=== PATIENT | female | born 1960 | race Caucasian/White ===

== ENCOUNTER 2020-02-20 09:08 | Emergency (ER) | payer BC, SELFPAY ==
[2020-02-20 09:19] VITALS: BP 156/83; PULSE 102; RESP 16; TEMP 37.4; O2SAT 99
--- NOTE | 2020-02-20 09:21 | ED.GENADULT ---
HPI - General Adult General Chief complaint: Skin/Abscess/Foreign Body Stated complaint: itchy rash Time Seen by Provider: 02/20/20 09:21 Source: patient Mode of arrival: ambulatory Limitations: no limitations History of Present Illness HPI narrative: 59-year-old female patient presents to the [facility] with complaints of a left ankle wound for the past 10 days and a rash for the past 5 to 6 days. Patient states that she had surgery on her left ankle back in August because she had broken her ankle and they had to put some pins into the left ankle. Patient states it was completely healed up and about 10 days ago she noticed that the skin was getting irritated and it had opened up and was losing. Patient states she also noticed a little bit of a rash around the ankle as well. Patient states that she was putting some Neosporin on it and did follow-up with the surgeon that had bit her ankle surgery and states that they did not think that the pain was or the hardware and there was causing her skin issue and just recommended putting continuing to put Neosporin on the area. Patient states she was doing that it did appear to get better however couple days ago it opened up again and started having some bruising of yellow discharge. Patient denies any pain to the area. Patient states that she has also noticed a rash of the ankle that has now spread throughout the entire body. Patient states she has tried taking Benadryl for the rash but states that has not helped with the itching. Patient states did not appear to be hive-like rash but states that now the visible rash is gone but continues to have itching. Denies any chest pain, shortness of breath. Denies any swelling to the lips tongue or face. Patient denies coming into contact with anything that she is allergic to and denies any new soaps lotions or detergents. Related Data Allergies Allergy/AdvReac Type Severity Reaction Status Date / Time Ascwrox-Kkn-Jtx Reductase Allergy Unknown Unknown Verified 02/20/20 09:47 Inhibitor strawberry Allergy Unknown Unknown Verified 02/20/20 09:47 Review of Systems Review of Systems: Narrative: CONSTITUTIONAL: Denies fever, chills, or sweats. EYES: Denies visual changes, redness, or discharge. ENT: Denies rhinorrhea, congestion, sore throat, or otalgia. CARDIOVASCULAR: Denies chest pain, palpitations, or edema. RESPIRATORY: Denies cough or dyspnea. GASTROINTESTINAL: Denies abdominal pain, nausea, vomiting, or diarrhea. GENITOURINARY: Denies dysuria or hematuria. SKIN: Positive rash with itching to left ankle, bilateral lower extremities, bilateral upper extremities, chest and face x4 5 days. Positive wound to left lateral ankle x10 days MUSCULOSKELETAL: Denies back pain, joint pain, or myalgia. NEUROLOGIC: Denies headache, numbness, or weakness. PSYCHIATRIC: Denies anxiety or depression. [facility] Past Medical History Medical History (Updated 02/20/20 @ 09:51 by ANABEL Shah) Hypertension Surgical History Surgical History (Updated 02/20/20 @ 09:44 by ANABEL Shah) History of appendectomy Hx of cholecystectomy Family History Family History Father Diabetes mellitus Family history of cardiovascular disease Mother Diabetes mellitus Hypertension Social History Social History Smoking status: Light tobacco smoker Second hand tobacco smoke exposure: No Alcohol intake: current Comments At the time of my signature I agree with nursing past medical history, surgical, social, and family history. There is no relevant family history pertinent to the presenting complaint. Exam Narrative: Exam Narrative: GENERAL: Well-appearing, well-nourished, and in no acute distress. HEAD: Normocephalic, atraumatic. EYES: PERRLA and EOMI. ENT: Nares clear, no rhinorrhea or epistaxis. Mucous membranes moist. NECK: Supple. No lymp
== END 2020-02-20 09:55 | disposition home or self-care (01) ==
PROVIDERS: Emergency Provider Nurse Practitioner Family; PCP Family Medicine
DX: L25.9 Unspecified contact dermatitis, unspecified cause (principal); F17.200 Nicotine dependence, unspecified, uncomplicated; I10 Essential (primary) hypertension
CPT/HCPCS: 99213; G0463

== ENCOUNTER 2020-07-27 18:32 | Emergency (ER) | payer BC, SELFPAY ==
--- NOTE | ~2020-07-27 | XR_ITS ---
EXAMINATION: XR chest 1V portable 07/27/2020 19:31 INDICATION: Shortness of breath. Hypertension. PROCEDURE: AP portable chest COMPARISON: 02/15/2009 FINDINGS: The lungs are clear. The cardiomediastinal silhouette is within normal limits. There are no pleural effusions. There is no pneumothorax suspected. There is dextroscoliosis of the thoracic spine. IMPRESSION: 1: NO ACUTE CARDIOPULMONARY DISEASE. Reviewed, dictated and finalized at location A. MATIC MACHINE ATTENDANT
--- NOTE | ~2020-07-27 | CT_ITS ---
EXAMINATION: CTA chest PE protocol DATE: 07/27/2020 20:21 AUTOMATIC PILOT MECHANIC INDICATION: Chest pain TECHNIQUE: Computed tomographic angiography (CTA) of the chest was performed with 100 mL Omnipaque-35 0 intravenous contrast. The dose-length product was 410.68 mGy-cm. Maximum intensity projection 3D-re constructions of the aorta and other arteries were constructed by the technologist on a separate work station. Automated exposure control and iterative reconstruction technique were employed. COMPARISON: None. FINDINGS: Study is technically adequate without evidence for pulmonary embolism. No evidence for aort ic aneurysm or dissection. No significant pleural or pericardial effusion. There is a large liver cys t measuring approximately 7 cm in the region of the presley hepatis. There are cholecystectomy clips. N o thoracic lymphadenopathy.No focal airspace disease. No pneumothorax. No suspicious pulmonary nodule s or masses. No endobronchial lesions. There is dependent atelectasis. There is dextroscoliosis of th e thoracic spine. Mild thoracic spondylosis. IMPRESSION: 1. No acute cardiopulmonary disease. No evidence for pulmonary embolism. Reviewed, dictated and finalized at location A. MATIC PILOT MECHANIC
--- NOTE | ~2020-07-27 | CT_ITS ---
EXAMINATION: CT BRAIN W/O DATE: 07/27/2020 19:01 INDICATION: Right forearm numbness. TECHNIQUE: Computed tomography (CT) of the head was performed without intravenous contrast. The dose- length product was 605.33 mGy-cm. The mA was adjusted according to patient size. Iterative reconstruc tion technique was employed. COMPARISON: No prior studies for comparison. FINDINGS: Normal brain parenchymal volume for age. Normal del castillo-white differentiation. No acute intrac ranial hemorrhage, infarction, mass or mass effect. No ventriculomegaly or midline shift. Midline sagittal images demonstrate a normal corpus callosum, c raniovertebral junction and sella turcica. Basilar cisterns are patent. Paranasal sinuses and mastoids are pneumatized. No depressed skull fractures. IMPRESSION: 1. No acute intracranial abnormality. Reviewed, dictated and finalized at location A. FOLIO ASSISTANT
--- NOTE | ~2020-07-27 | CT_ITS ---
EXAMINATION: CTA brain carotid DATE: 07/27/2020 21:11 RED CROSS WORKER INDICATION: Right-sided neck pain. Carotid palpitations. TECHNIQUE: Computed tomographic angiography (CTA) of the head was performed without and with 100 mL O mnipaque-350 intravenous contrast. CTA of the neck was performed with intravenous contrast. The dose- length product was 1020.45 mGy-cm. Maximum intensity projection and volume rendered 3D-reconstruction s were created by the technologist on a separate workstation. COMPARISON: CT brain dated 07/27/2020. FINDINGS: HEAD CTA: There is mild stenosis of the bilateral cavernous internal carotid arteries. The anterior, middle and posterior cerebral arteries are patent with normal caliber. There is anterior dominant cir culation with origin of the posterior cerebral arteries. Small caliber vertebral and basilar ar speedy likely developmental without superimposed stenosis. No aneurysm. There is intracranial atheroscl erosis. NECK CTA: There is moderate stenosis at the origin of the left internal carotid artery due to atheros clerotic plaque. There is mild stenosis at the origin of the right internal carotid artery due to ath erosclerotic plaque. There is a 1 cm left thyroid nodule, likely benign. There is conventional aortic arch with patent origin of the great vessels. Common carotid arteries are patent with normal caliber . Bilateral vertebral arteries are normal in caliber. No evidence for dissection. There is less than 50%% stenosis of the proximal right internal carotid artery relative to normal dis alfred artery lumen diameter (NASCET criteria). There is 60% stenosis of the proximal left internal boateng tid artery relative to normal distal artery lumen diameter. IMPRESSION: 1. Less than 50% stenosis of the proximal right internal carotid artery relative to normal distal art guy lumen diameter (NASCET criteria). 2. 60% stenosis of the proximal left internal carotid artery relative to normal distal artery lumen d iameter. 3: Patent intracranial circulation without evidence for aneurysm. Reviewed, dictated and finalized at location A. CROSS WORKER IMPRESSION: 1. Less than 50% stenosis of the proximal right internal carotid artery relativ e to normal distal artery lumen diameter (NASCET criteria). 2. 60% stenosis of the proximal left internal carotid artery relative to normal distal artery lumen diameter. 3: Patent intracranial circulation without evidence for aneurysm.
--- NOTE | 2020-07-27 18:52 | ECG_ITS ---
Measurements Intervals [place] Rate: 87 P: 50 DE: 121 QRS: 35 QRSD: 94 T: 37 QT: 355 QTc: 428 Interpretive Statements SINUS RHYTHM CONSIDER INFERIOR INFARCT, AGE INDETERMINATE BASELINE ARTIFACT- I, II, III, AVR, AVL, AVF, V1-V3 ABNORMAL ECG Electronically Signed On 07-28-2020 8:38:47 ELEVATOR CONSTRUCTOR HYDRAULIC by Jared Rea D.O.
[2020-07-27 19:03] VITALS: BP 185/88; PULSE 81; RESP 20; TEMP 36.8; O2SAT 100
[2020-07-27 19:22] LABS: Basophils Percent Auto 0.3 % (0.2-1.2); Eosinophils Percent Auto 0.6 % (0-4.4); Hematocrit 39.2 % (37.0-47.0); Hemoglobin 13.3 g/dL (12.0-15.0); Immature Granulocyte Absolute 0.02 K/mm3 (0.00-0.031); Immature Granulocyte Percent A 0.3 % (0-0.5); Lymphocytes Absolute Auto 2.89 K/mm3 (0.9-3.2); Mean Corpuscular HGB Conc 33.9 g/dl (32-36); Mean Corpuscular Hemoglobin 33.5 pg (26-34); Mean Corpuscular Volume 98.7 fl (80-100); Mean Platelet Volume 9.8 fl (7.4-10.4); Monocytes Absolute Auto 0.4 K/mm3 (0.1-0.6); Neutrophils Absolute Auto 3.5 K/mm3 (1.3-6.7); Neutrophils Percent Auto 50.8 % (45.5-73.1); Platelet Count Result 228 k/mm3 (150-375); Red Blood Count 3.97 M/mm3 (4.2-5.4); Red Cell Distribution Width 12.1 % (11.5-14.5); White Blood Count 6.9 K/mm3 (4.5-10.0)
[2020-07-27 19:32] LABS: INR 0.9; Prothrombin Time 12.8 Seconds (11.1-14.7)
[2020-07-27 19:34] LABS: Partial Thromboplastin Time 24.8 SECONDS (22.3-36.8)
[2020-07-27 19:40] LABS: Anion Gap 6 mmol/L (8-16); Blood Urea Nitrogen 13 mg/dL (7-17); Calcium 9.6 mg/dL (8.4-10.2); Carbon Dioxide 29 mmol/L (22-30); Chloride 98 mmol/L (98-107); Estimated CRCL calculation 138 ml/min; Estimated Glomerular Filt Rate > 60; Glucose 114 mg/dL (65-105); Potassium 4.1 mmol/L (3.4-5.0); Sodium 133 mmol/L (137-145)
[2020-07-27 19:53] LABS: Troponin I < 0.012 ng/mL (0.000-0.034)
--- NOTE | 2020-07-27 19:59 | ED.GENADULT ---
HPI - General Adult General Chief complaint: Arrhythmia/Palpitations Stated complaint: paliptations and neck pain Time Seen by Provider: 07/27/20 19:12 History of Present Illness HPI narrative: Patient is a 59-year-old female who presents to the emergency department with chief complaint of right-sided neck pain and chest discomfort. Patient reports that she was at work approximately 4 PM started having pain in the right side of her neck that then radiated down her right arm. Patient states that her arm felt a little weak at the time but did not have any other weakness that developed. Patient states she had some tightness in her chest and also reported that she felt somewhat short of breath when this occurred patient denies headache denies focal neurological deficit. The patient states that her upper extremity has improved and feels almost back to normal at this time but states she still feels a little bit of discomfort in the right side of her neck. Patient reports she has history of carotid stenosis that was treated with just antiplatelet therapy. Related Data Home Medications Medication Instructions Recorded Confirmed B-complex with vitamin C 1 tablet PO DAILY 07/13/20 07/13/20 calcium carbonate 600 mg calcium 600 mg PO DAILY 07/13/20 07/13/20 (1,500 mg) tablet magnesium oxide 500 mg tablet 500 mg PO DAILY 07/13/20 07/13/20 multivitamin 1 tablet PO DAILY 07/13/20 07/13/20 Allergies Allergy/AdvReac Type Severity Reaction Status Date / Time Reegntb-Gpj-Ksi Reductase Allergy Unknown Unknown Verified 07/13/20 07:58 Inhibitor strawberry Allergy Unknown Unknown Verified 07/13/20 07:58 Review of Systems Review of Systems: Narrative: A 10 system review of systems was completed on the patient and is negative except for what is stated in the HPI. Nursing and ancillary documentation was reviewed. [facility] Past Medical History Medical History Hypertension Surgical History Surgical History History of appendectomy Hx of cholecystectomy Family History Family History Father Diabetes mellitus Family history of cardiovascular disease Mother Diabetes mellitus Hypertension Social History Social History Social History: Years smoked: 15 Smoking status: Former smoker Tobacco type: cigarettes Second hand tobacco smoke exposure: No Smoking end date: 03/18/16 Alcohol intake: current Drinks per week: 3 Substance use: never Substance use type: does not use Gender identity (if verbalized by the patient): Female Exam Narrative: Exam Narrative: GENERAL: Well-appearing, well-nourished, and in no acute distress. HEAD: Normocephalic, atraumatic. EYES: PERRLA and EOMI. ENT: Nares clear, no rhinorrhea or epistaxis. Mucous membranes moist. NECK: Supple. CHEST: Clear to auscultation. No respiratory distress. HEART: Regular rate and rhythm. No murmur heard. Normal peripheral pulses. ABDOMEN: Soft, nontender, nondistended, normal active bowel sounds. EXTREMITIES: Normal range of motion. No edema. SKIN: Warm, dry, no rash. NEURO: No focal deficits. Alert and oriented x3. PSYCH: Normal mood and affect. Course Course Emergency Course: CTA of the neck showed severe stenosis of the left internal carotid and mild stenosis of the right ICA. There is no evidence of dissection. CTA of the chest showed no evidence of dissection and no evidence of pulmonary embolism. Discussion with the patient patient was offered admission for further evaluation. Potential MRI patient at this time to proceed with outpatient treatment and outpatient follow-up. Vital Signs Vital signs: Vital Signs Temperature 36.8 C 07/27/20 19:03 Pulse Rate 81 07/27/20 19:03 Res
[2020-07-27 21:04] LABS: Troponin I < 0.012 ng/mL (0.000-0.034)
[2020-07-27 21:14] VITALS: BP 141/86; PULSE 75; RESP 15; TEMP 36.4; O2SAT 98
== END 2020-07-27 21:15 | disposition home or self-care (01) ==
PROVIDERS: Emergency Medicine; Emergency Provider Emergency Medicine; PCP Family Medicine
DX: M54.2 Cervicalgia (principal); I10 Essential (primary) hypertension; Z87.891 Personal history of nicotine dependence; R94.31 Abnormal electrocardiogram [ECG] [EKG]; I65.23 Occlusion and stenosis of bilateral carotid arteries
CPT/HCPCS: 36415; 70450; 70496; 70498; 71045; 71275; 80048; 81025; 82948; 84484; 85025; 85610; 85730; 93005; 99284; Q9967

== ENCOUNTER 2020-08-14 15:15 | Outpatient (CLI) | payer BC, SELFPAY ==
--- NOTE | ~2020-08-14 | DEXA_ITS ---
Bone Density Report Name: Chante Yung Age: 59 Sex: Female Ethnicity: White Date of : 1960 Indication: postmenopausal; height loss; prior fracture; Referring Provider: DWAYNE MCLEOD Study: Bone densitometry was performed. Exam Date: August 14, 2020 Accession number: [id number] Bone Density: Region BMD T-score Z-score Classification AP Spine (L1, L2, L3) 0.932 -0.8 0.6 Normal Femoral Neck (Left) 0.797 -0.5 0.8 Normal Total Hip (Left) 0.901 -0.3 0.6 Normal Total Hip Bilateral Avg 0.939 0.0 1.0 Normal Femoral Neck (Right) 0.816 -0.3 1.0 Normal Total Hip (Right) 0.976 0.3 1.3 Normal World Health Organization criteria for BMD impression classify patients as: Normal (T-score at or above -1.0), Osteopenia (T-score between -1.0 and -2.5), or Osteoporosis (T-score at or below -2.5). 10-year Fracture Risk: FRAX not reported because: All T-scores for Spine Total, Hip Total, Femoral Neck at or above -1.0 Previous Exams: Region Exam Age BMD T-score BMD Change BMD Change Date g/cm2 vs Baseline vs Previous AP Spine(L1, L2, L3) 08/14/2020 59 0.932 -0.8 -0.157(-14.4%) -0.157(-14.4%) 03/23/2010 49 1.089 0.6 Total Hip(Left) 08/14/2020 59 0.901 -0.3 -0.169(-15.8%) -0.169(-15.8%) 03/23/2010 49 1.070 1.0 Total Hip(Right) 08/14/2020 59 0.976 0.3 -0.119(-10.9%) -0.119(-10.9%) 03/23/2010 49 1.096 1.3 *Denotes significance at 95% confidence level, LSC for AP Spine = 0.022 g/cm2, LSC for Total Hip = 0.027 g/cm2 Clinical Information Provided by Patient: Has had a low trauma fracture Has used the following medications: Vitamin D, Calcium Patient maximum height was 68 Menopause Age: 44 Onset of menses at age 11 Number of children 0 Impression: The patient has normal bone mass. The patient has risk factors, including: previous fracture. No significant bone loss was observed. Discussion: BONE DENSITY IS ABOVE THE MINIMUM DESIRABLE LEVEL AT ALL SKELETAL SITES TESTED. This patient?s bone mineral density is above the minimum desirable level (T-score -1.0 or better) at all sites measured. The patient should follow a healthful lifestyle (good nutrition with adequate calcium and vitamin D, and appropriate weight-bearing exercise). Follow-Up: Consider repeating this study in 5 years or sooner if there is some new clinical indication. Reported by: JOHN on 08/14/2020 3:52:00 PM. Revie
--- NOTE | ~2020-08-14 | MM_ITS ---
EXAMINATION: MM screening [facility] BI w rossy HISTORY: Screening mammogram TECHNIQUE: Craniocaudal and mediolateral oblique 3-D tomosynthesis images were obtained and synthetic 2-D images were generated. CAD analysis was submitted and interpreted. COMPARISON: 03/08/2015, 01/15/2013, 04/24/2010 BREAST PARENCHYMAL COMPOSITION: The breasts are extremely dense, which lowers the sensitivity of mamm ography. FINDINGS: RIGHT BREAST: There is no evidence of suspicious mass, calcification, or architectural distortion to suggest malignancy. There has been no significant interval change. LEFT BREAST: Asymmetry is present in the middle third of the slightly inner breast 3.7 cm from the ni pple on the craniocaudal view. IMPRESSION: 1. Left breast asymmetry. 2. Additional mammographic views and possible breast ultrasound are recommended. BI-RADS Category 0: Incomplete: Needs additional imaging evaluation. Reviewed, dictated and finalized at location A. IMPRESSION: 1. Left breast asymmetry. 2. Additional mammographic views and possible breast ultrasound are recommended . BI-RADS Category 0: Incomplete: Needs additional imaging evaluation.
== END 2020-08-14 15:16 | disposition home or self-care (01) ==
LOC: ANHIMG 15:17
PROVIDERS: PCP Family Medicine; Visit Provider Family Medicine
DX: Z12.31 Encounter for screening mammogram for malignant neoplasm of breast (principal); Z78.0 Asymptomatic menopausal state; R92.8 Other abnormal and inconclusive findings on diagnostic imaging of breast
CPT/HCPCS: 77063; 77067; 77080

== ENCOUNTER 2020-09-05 12:58 | Outpatient (CLI) | payer BC, SELFPAY ==
--- NOTE | ~2020-09-05 | MMUS_ITS ---
EXAMINATION: MM diagnostic mammo unilat LT, US breast LT limited HISTORY: Left breast asymmetry on screening mammogram TECHNIQUE: Additional 3-D tomosynthesis images of the left breast were performed and synthetic 2-D im ages were generated. CAD analysis was submitted and interpreted. High resolution limited left breast ultrasound was performed. COMPARISON: 08/14/2020, 03/08/2015, 01/15/2013 FINDINGS: MAMMOGRAPHIC FINDINGS: There is a return to baseline fibroglandular appearance with spot compression of the left breast in t he area questioned on screening mammogram. No suspicious mass or architectural distortion are identif ied. Scattered benign-appearing calcifications are present. ULTRASOUND: There is a 4 mm cyst at the 10:00 location 2 cm from the nipple. IMPRESSION: 1. No mammographic or sonographic evidence of malignancy. 2. Recommend routine screening mammography in one year. BI-RADS Category 2: Benign finding(s). Reviewed, dictated and finalized at location A. IMPRESSION: 1. No mammographic or sonographic evidence of malignancy. 2. Recommend routine screening mammography in one year. BI-RADS Category 2: Benign finding(s).
== END 2020-09-05 12:59 | disposition home or self-care (01) ==
PROVIDERS: PCP Family Medicine; Visit Provider Family Medicine
DX: R92.8 Other abnormal and inconclusive findings on diagnostic imaging of breast (principal)
CPT/HCPCS: 76642; 77065

== ENCOUNTER 2021-10-25 09:08 | Outpatient (CLI) | payer BC, SELFPAY ==
[2021-10-25 09:29] LABS: Basophils Percent Auto 0.6 % (0.2-1.2); Eosinophils Absolute Auto 0.1 K/mm3 (0-0.3); Hemoglobin 13.1 g/dL (12.0-15.0); Immature Granulocyte Absolute 0.01 K/mm3 (0.00-0.031); Immature Granulocyte Percent A 0.2 % (0-0.5); Lymphocytes Absolute Auto 1.44 K/mm3 (0.9-3.2); Lymphocytes Percent Auto 29.3 % (18.3-44.2); Mean Corpuscular HGB Conc 34.5 g/dl (32-36); Mean Corpuscular Hemoglobin 34.8 pg (26-34); Mean Corpuscular Volume 101.1 fl (80-100); Mean Platelet Volume 9.2 fl (7.4-10.4); Monocytes Absolute Auto 0.3 K/mm3 (0.1-0.6); Monocytes Percent Auto 6.9 % (2.6-8.5); Platelet Count Result 231 k/mm3 (150-375); Red Blood Count 3.76 M/mm3 (4.2-5.4); Red Cell Distribution Width 12.2 % (11.5-14.5); White Blood Count 4.9 K/mm3 (4.5-10.0)
[2021-10-25 09:41] LABS: Alanine Aminotransferase 29 U/L (6-35); Albumin Level 4.6 g/dL (3.5-5.1); Alkaline Phosphatase 55 U/L (38-126); Anion Gap 4 mmol/L (8-16); Aspartate Amino Transferase 34 U/L (14-36); Bilirubin,Total 0.3 mg/dL (0.2-1.3); Blood Urea Nitrogen 10 mg/dL (7-17); Calcium 8.6 mg/dL (8.4-10.2); Carbon Dioxide 29 mmol/L (22-30); Chloride 101 mmol/L (98-107); Cholesterol 186 mg/dL (0-200); Estimated Glomerular Filt Rate > 60; Glucose 122 mg/dL (65-110); HDL Direct 74 mg/dL; Potassium 4.1 mmol/L (3.4-5.0); Sodium 134 mmol/L (137-145); Triglycerides 90 mg/dL (<150)
[2021-10-25 09:51] LABS: LDL Cholesterol Direct 74 mg/dL
[2021-10-25 10:11] LABS: Thyroid Stimulating Hormone 0.305 uIU/mL (0.465-4.680)
== END 2021-10-25 09:09 | disposition home or self-care (01) ==
LOC: ANHLAB 09:10
PROVIDERS: PCP Family Medicine; Visit Provider Family Medicine
DX: E78.2 Mixed hyperlipidemia (principal); I10 Essential (primary) hypertension; E11.9 Type 2 diabetes mellitus without complications; E03.9 Hypothyroidism, unspecified
CPT/HCPCS: 36415; 80053; 80061; 83036; 84443; 85025

== ENCOUNTER 2021-12-11 09:13 | Outpatient (CLI) | payer BC, SELFPAY ==
--- NOTE | ~2021-12-11 | MM_ITS ---
EXAMINATION: MM screening [facility] BI w rossy HISTORY: Screening mammogram TECHNIQUE: Craniocaudal and mediolateral oblique 3-D tomosynthesis images were obtained and synthetic 2-D images were generated. Bilateral rotated lateral CC views. CAD analysis was submitted and interp reted. COMPARISON: 09/05/2020 diagnostic left mammogram and limited left breast ultrasound examination 08/14/2020, 03/08/2019.. BREAST PARENCHYMAL COMPOSITION: The breasts are extremely dense, which lowers the sensitivity of mamm ography. FINDINGS: Right breast: Multiple benign calcifications are noted. There is no evidence of suspicious mass, calcification, or architectural distortion to suggest malignancy in either breast. There has be en no suspicious interval change. Left breast: New mammographic asymmetry is noted in the posterior upper outer left breast and along t he anterior upper fibroglandular margin on MLO view. Diagnostic left mammogram and left breast ultras ound examination are recommended. IMPRESSION: 1. New mammographic asymmetry on the left 2. Diagnostic left mammogram and left breast ultrasound examination are recommended. BI-RADS Category 0: Incomplete: Needs additional imaging evaluation. Reviewed, dictated and finalized at location A. IMPRESSION: 1. New mammographic asymmetry on the left 2. Diagnostic left mammogram and left breast ultrasound examination are recomme nded. BI-RADS Category 0: Incomplete: Needs additional imaging evaluation.
== END 2021-12-11 09:14 | disposition home or self-care (01) ==
PROVIDERS: PCP Family Medicine; Visit Provider Family Medicine
DX: Z12.31 Encounter for screening mammogram for malignant neoplasm of breast (principal); R92.8 Other abnormal and inconclusive findings on diagnostic imaging of breast
CPT/HCPCS: 77063; 77067

== ENCOUNTER 2024-01-05 13:05 | Outpatient (CLI) | payer OTHER, SELFPAY ==
--- NOTE | ~2024-01-05 | MMUS_ITS ---
EXAMINATION: MM diagnostic [facility] BI w rossy, US breast BI complete HISTORY: Follow-up breast asymmetries. TECHNIQUE: Additional 3-D tomosynthesis images of the breasts were performed and synthetic 2-D images were generated. CAD analysis was submitted and interpreted. High resolution bilateral complete breas t ultrasound was performed. COMPARISON: Comparison to multiple prior studies sequentially, with oldest reviewed study dated 02/17. BREAST PARENCHYMAL COMPOSITION: Dense: The breasts are extremely dense, which lowers the sensitivity of mammography. FINDINGS: MAMMOGRAPHIC FINDINGS: There are stable bilateral breast asymmetries. There are scattered benign-appearing breast calcificat ions. No discrete architectural distortion. ULTRASOUND: Complete US of all 4 quadrants of the breast/s and retroareolar region was reviewed. Right breast: At 4:30, 4 cm from the nipple there is a 3 mm cyst. No suspicious masses in the right b reast to suggest malignancy. Left breast: At 2:00, 7 cm from the nipple there is an antiparallel irregular shaped hypoechoic mass measuring 1.5 x 1.3 x 1.2 cm with marginal vascularity and mixed posterior attenuation. At 3:00, 5 cm from the nipple there is an oval slightly irregular shaped hypoechoic 7 mm mass with internal vascul arity. IMPRESSION: 1. Abnormal left breast masses located at 2:00, 7 cm from the nipple and 3:00, 5 cm from the nipple. 2. Ultrasound-guided biopsies recommended. BI-RADS category 4, suspicious findings. Reviewed, dictated and finalized at location B. IMPRESSION: 1. Abnormal left breast masses located at 2:00, 7 cm from the nipple and 3:00, 5 cm from the nipple. 2. Ultrasound-guided biopsies recommended. BI-RADS category 4, suspicious findings.
== END 2024-01-05 13:06 | disposition home or self-care (01) ==
PROVIDERS: PCP Family Medicine; Visit Provider Physician Assistant
DX: N63.0 Unspecified lump in unspecified breast (principal); R92.8 Other abnormal and inconclusive findings on diagnostic imaging of breast
CPT/HCPCS: 76641; 77062; 77066; G0279

== ENCOUNTER 2024-01-27 14:33 | Outpatient (CLI) | payer OTHER, SELFPAY ==
--- NOTE | ~2024-01-27 | MM_ITS ---
MM post biopsy diagnostic LT 01/27/2024 16:21 INDICATION: Status post recent ultrasound-guided left breast biopsy. TECHNIQUE: Digital diagnostic left mammogram. COMPARISON: 01/05/2024 BREAST PARENCHYMAL COMPOSITION: The breasts are extremely dense, which lowers the sensitivity of mamm ography. FINDINGS: Postbiopsy changes are noted in the upper, outer left breast, consistent with recent ultras ound guided biopsy. Interval placement of tissue marker in the upper, outer quadrant of the left maximus st. Please refer to Dr. Rosmery Juarez's procedural report for details.] IMPRESSION: 1: Status post recent upper, outer left breast biopsy with post procedure mammogram for marker placem ent. Reviewed, dictated and finalized at location . IMPRESSION: 1: Status post recent upper, outer left breast biopsy with post procedure mammo gram for marker placement.
--- NOTE | 2024-01-27 14:50 | WPDBIOPSY ---
Biopsy Procedure Date of Procedure 01/27/24 Indication Left breast mass at 2 o'clock 7cm from the nipple Impression Same as above Procedure Performed Procedure Performed: US Breast Biopsy with Imaging Surgeon Rosmery Jo MD Anesthesia Anesthesia: Local Description of Procedure Description of Procedure: Risk of the procedure were discussed with the patient which included but not limited to risk of bleeding, infection, possible need for repeat biopsy or additional procedures in the future, bruising, hematoma,etc. Benefits and alternatives to procedure were discussed as well. Consent was obtained and a time out was performed. The left breast mass was identified using the US at 2 o'clock position 7 cm from the nipple, and lidocaine with epinephrine was used to anesthetize the skin and tissue surrounding the mass under US guidance. A 10g vacuum assisted device was used to obtain 4 core biopsy specimens under US guidance. An Inrad tissue marker clip was then placed at the biopsy site under US guidance. Pressure was held over the area for 10 minutes with excellent hemostasis. Core needle specimens were sent to pathology in formalin. Patient tolerated the procedure well with no immediate complications. A post-procedure left mammogram was obtained to confirm the tissue marker clip placement.
== END 2024-01-27 14:34 | disposition home or self-care (01) ==
LOC: ANHIMG 14:34
PROVIDERS: PCP Family Medicine; Visit Provider Surgery
DX: C50.412 Malignant neoplasm of upper-outer quadrant of left female breast (principal)
CPT/HCPCS: 19083; 77065; 88305; 88342; 88360; A4648

== ENCOUNTER 2024-02-12 08:27 | Outpatient (CLI) | payer OTHER, SELFPAY ==
--- NOTE | 2024-02-12 08:32 | ECG_ITS ---
Test Date: 2024-02-12 08:48:54 Measurements Intervals [place] Rate: 73 P: 61 MA: 131 QRS: 50 QRSD: 103 T: 48 QT: 373 QTc: 413 Interpretive Statements SINUS RHYTHM MINIMAL Q WAVES- INFERIOR LEADS BASELINE ARTIFACT- I, II, III, AVR, AVL, AVF, V1-V6 BORDERLINE ECG No previous ECG available for comparison Electronically Signed On 02-12-2024 09:04:30 CDT by Jared Rea D.O.
[2024-02-12 09:16] LABS: Anion Gap 7 mmol/L (4-12); Blood Urea Nitrogen 17 mg/dL (7-17); Calcium 9.7 mg/dL (8.4-10.2); Carbon Dioxide 29 mmol/L (22-30); Chloride 99 mmol/L (98-107); Estimated Glomerular Filt Rate > 60; Glucose 105 mg/dL (65-110); Potassium 4.2 mmol/L (3.4-5.0); Sodium 135 mmol/L (137-145)
== END 2024-02-12 08:28 | disposition home or self-care (01) ==
LOC: ANHSURGERY 08:31
PROVIDERS: Anesthesiology; PCP Family Medicine; Visit Provider Surgery
DX: C50.912 Malignant neoplasm of unspecified site of left female breast (principal); Z79.899 Other long term (current) drug therapy; I10 Essential (primary) hypertension; E78.5 Hyperlipidemia, unspecified; Z01.818 Encounter for other preprocedural examination
CPT/HCPCS: 36415; 80048; 86850; 86900; 86901; 93005

== ENCOUNTER 2024-02-18 00:57 | Day surgery (SDC) | payer OTHER, SELFPAY ==
[2024-02-09 13:45] VITALS: BMI 28.2
--- NOTE | 2024-02-09 13:46 | PC.NURSE ---
Report to the Outpatient Waiting Room, entrance under the green pavilion located off [facility], at time _0700_ on date _[id number]_. Planned Procedure Time: _0900_.? Nuc med at 0815 Time changes happen often and if your time is changed the preop area will call you the afternoon before. - You and your visitor will be asked to self-screen and do not enter if you have any COVID symptoms. Please call surgeon if you need to reschedule. - A mask is optional within the hospital at this time. Patients may have clear liquids (water, carbonated beverages, clear teas, apple juice) until 3 hours prior to surgery with a maximum of 20 ounces. - No food from midnight until time of surgery and no smoking Take only the following medications with a SIP of water on the morning of surgery: ___Alprazolam if needed. DO NOT STOP ANY OF YOUR OTHER PRESCRIPTION MEDICATIONS PRIOR TO SURGERY EXCEPT THE FOLLOWING Medications to discontinue per physician All vitamins Date to take last resz___[id number] Please no make-up, nail amharic, hairspray, perfume, deodorant, or body powder the day of surgery.? No jewelry (including any body piercings) or valuables the day of surgery, leave them at home.? Please take a shower or bath the night before, or the morning of, surgery with an antibacterial soap.? Wear comfortable, loose fitting clothing.? - Jewelry must be removed prior to entering the operating room.? Rings and piercings that are not removed may be cut off. - The hospital will not accept responsibility for valuables.? - Please leave all valuables, including medications, at home the day of surgery. If you are going home after surgery, a licensed pedicab driver must drive you home.? - NO public transportation without another adult if you receive anesthesia. - We recommend that an adult stay with you for 24 hours following discharge. - We also recommend that you do not drive, make important decision, drink alcoholic beverages, or take any drugs that were not prescribed by your health care provider for at least 24 hours after your discharge time. Follow any additional instructions given to you from your surgeon. Telephone instructions given to __Chris___and asked if any additional questions and then verbalized understanding. Patient advised to call surgeon office or pre surgery nurse liaison [phone] if any additional questions.
[2024-02-18] VITALS (13 sets, daily range): BP systolic 132–159; BP diastolic 59–79; PULSE 78–97; RESP 10–20; TEMP 36.6–37.4; O2SAT 96–100
--- NOTE | ~2024-02-18 | NM_ITS ---
EXAMINATION: NM sentinel node inject only DATE: 02/18/2024 11:41 INDICATION: Left breast cancer TECHNIQUE: 1.086 mCi Tc-99m filtered sulfur colloid was injected in 4 aliquots at the superior, infer ior, medial and lateral margins of the areola. No images were obtained. IMPRESSION: 1. Successful left breast sentinel lymph node radiopharmaceutical injection. Reviewed, dictated and finalized at location A.
[2024-02-18] MEDS: ACETAMINOPHEN 500 MG TABLET 1000 MG PO (07:35)
--- NOTE | 2024-02-18 08:39 | WPDHPUPDATE1 ---
History and Physical Update Update Date/Time: 02/18/24 08:39 - Left total mastectomy with left sentinel lymph node biopsy with Lymphoseek, possible methylene blue injection for sentinel lymph node mapping, right prophylactic mastectomy, possible bilateral adjacent tissue transfer for flat closure History and Physical has been reviewed, including an updated exam of the patient. There are NO changes in the patient's condition. Risks, benefits, and alternatives have been discussed and questions answered. Patient agrees to proceed with procedure.
--- NOTE | 2024-02-18 08:59 | WPDANESEPPF ---
Anes - Initial Pre Proc Eval Procedure: Operation Date: 02/18/24 09:00 Proposed Procedures p Left Total Mastectomy, Prophylactic Right Total Mastectomy, Left [place] Lymph Node Biopsy with Lymphoseek Injection, Possible Methylene Blue Injection, Possible Adjacent Tissue Transfer - Rosmery Jo MD Date/Time: 02/18/24 08:59 Surgeon: Rosmery Jo MD Pre Op Diagnosis: invasive ductal CA left breast Patient Data Age: 63 Gender: F Height: 1.7 m Weight: 81.5 kg Allergies Allergy/AdvReac Type Severity Reaction Status Date / Time strawberry Allergy Intermediate Hives Verified 02/18/24 07:48 Home Medications Medication Instructions Recorded Confirmed Type B-complex with vitamin C 1 tablet PO DAILY 07/13/20 02/18/24 History calcium carbonate (Calcium 600) 600 mg PO DAILY 07/13/20 02/18/24 History magnesium oxide 500 mg PO DAILY 07/13/20 02/18/24 History multivitamin 1 tablet PO DAILY 07/13/20 02/18/24 History alprazolam 0.25 mg tablet 0.25 mg PO BID PRN anxiety #60 tabs 11/14/22 02/18/24 Rx rosuvastatin 10 mg tablet 10 mg PO DAILY #90 tabs 11/14/22 02/18/24 Rx lisinopril 20 1 tablet PO DAILY #90 tabs 12/08/23 02/18/24 Rx mg-hydrochlorothiazide 12.5 mg tablet Patient hx anesthesia problems: none Family hx anesthesia problems: none Results Review: All pre-operative results and documents have been reviewed as part of the pre-operative evaluation. [facility] Past Medical History Medical History Ankle fracture, left trimaleolar 2019 Cholecystitis LAURA (generalized anxiety disorder) Hyperlipidemia Hypertension Melanosis coli Thyroid nodule Surgical History Surgical History H/O colonoscopy with polypectomy 2018, repeat in 2023 History of appendectomy Hx of cholecystectomy Family History Family History Father Diabetes mellitus Family history of cardiovascular disease Mother Diabetes mellitus Hypertension Social History Social History (Reviewed 10/02/24 @ 08:59 by JOANNE Chavez Social History: Years smoked: 15 Smoking status: Former smoker Tobacco type: cigarettes Second hand tobacco smoke exposure: No Smoking end date: 02/08/14 Alcohol intake: current Drinks per week: 5 Alcohol use details: Occasionally Substance use: never Substance use type: does not use Do You Feel Safe in your Home?: Yes Lack of Transportation: No Lack of Food: Never True Current Housing: I Have Housing Concerned About Future Housing: No Difficulty Paying Gas/Electric Bills: No Difficulty Paying for Meds: No Currently Unemployed: No Education: High School Diploma/GED Difficulty w/ Childcare or Family Care: No Living arrangements: with family Additional living arrangements comments: Pt lives with her mother. Occupation/Education: retired Gender identity (if verbalized by the patient): Female Sexual Orientation (if Verbalized by the Patient): Straight or Heterosexual Spiritual care concerns: No Anes - Eval Final PreProcedure Day of Procedure 02/18/24 08:59 Patient weight: overweight Heart: regular rate and rhythm Lungs: clear to auscultation and normal air movement Airway: Mallampati scale class III Neurological: alert and oriented Last oral intake: >/= 8 hours ASA classification: III Emergent: no Anesthetic plan: proceed Anesthesia type and monitoring: general ETT and standard monitoring Results Review: All pre-operative results and documents have been reviewed as part of the pre-operative evaluation. Informed Consent: The patient's anesthetic plan and its attendant risks and benefits were discussed with the patient/family/POA. Questions were solicited and answers provided to the satisfaction of the patient/family/POA.
[2024-02-18] MEDS: METHYLENE BLUE 0.5% INJ 10 ML AMPULE IRRIGATION (09:24)
[2024-02-18] MEDS: ceFAZolin 2 GM/D5W 50 ML 2 GM/50 ML BAG IVPB (09:24)
[2024-02-18] MEDS: BUPIVACAINE/EPINEPHRINE 0.5% 10 ML VIAL 40 ML INFILTRATE (09:24)
--- NOTE | 2024-02-18 12:48 | W.PM.PROC2 ---
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 Left total mastectomy 2. Right total prophylactic mastectomy 3. Injection of methylene blue for dual tracing and sentinel lymph node mapping 4. Left sentinel lymph node biopsy 5. Left adjacent tissue transfer 25 cm x 4 cm 6. Right adjacent tissue transfer 22 cm x 6 cm Surgeon Rosmery Jo MD Anesthesia General Description of Procedure Patient was identified in the preoperative holding area brought to the operating room suite.?Patient underwent lymphoseek Injection in nuclear Medicine prior to presentation to preoperative area. Patient was taken to the operating room and sequential compression devices were applied. General anesthesia was induced without difficulty.? Bilateral chest and left axillary areas were prepped draped in sterile fashion.? Diluted methylene blue 50:50 with saline was injected into the subdermal plane in the periareolar area of the left breast for dual tracing. Decision was made to start with the left side. The Neoprobe probe was used to find the area of highest radio activity in the left axilla, and an incision was made overlying this area that was incorporated into the mastectomy incision.? Dissection was carried down through the subcutaneous tissue and the clavipectoral fascia was incised.? I was able to identify a node that was hot and blue.? This was gently grasped and excised using the LigaSure device.? The Neoprobe was used to obtain an ex-vivo count which was approximately [id number].? The node was sent to pathology as a permanent specimen.? The Neoprobe was again used to scan the axilla trying to identify another node that was at least 10% of the original sentinel lymph node count. No other node was found and the axilla was irrigated and hemostasis was assured. Attention was then turned to the left breast. An elliptical incision encompassing the nipple areolar complex was made and dissection was carried down through the subcutaneous tissue and continued through the thin areolar tissue plane between the subcutaneous tissue with the breast tissue superiorly to the inferior border of the clavicle.? We then continued our dissection medially to the lateral aspect of the sternum, inferiorly to the inframammary fold and laterally to latissimus.? Once this was performed the breast tissue along with the pectoralis fascia was dissected off the pectoralis muscle posteriorly.? The mastectomy specimen was then marked short stitch superior long stitch lateral stitch lateral for orientation.? The specimen was then sent to pathology as a fresh specimen.? Hemostasis was assured. An elliptical incision was again made around the right nipple areola area, and dissection was carried down to the subcutaneous tissue until the thin areolar tissue plane was encountered.? This was then dissected superiorly to the inferior aspect of the clavicle, medially to the lateral aspect of the sternum, laterally to the latissimus dorsi, and inferiorly to the inframammary fold.? The breast along with the pectoralis fascia was then dissected off the pectoralis muscle and the specimen was oriented with a short stitch superiorly and long stitch laterally, and sent to pathology as the fresh specimen.? Hemostasis was assured.? Two 15Fr flat drains were placed above the pectoralis muscle and secured to the skin with silk suture. ?Given the redundant skin flap inferiorly, decision was made to use the inferior skin flaps to create a vincent inferior mound and give a better contour to the chest.? The defect for the left side was 25cm x 4cm and the right side was 22cm x 6cm.? The inferior skin flap was de-epithelialized bilaterally and carefully tacked to the pectoralis muscle with interrupted 2-0 Vicryl.? The superior mastectomy flap was then advanced over the inferior flap and secured to the inferior flap using 3-0
[2024-02-18] MEDS: LACTATED RINGERS 1,000 ML 30 ML IV CONT ×2 (12:53)
[2024-02-18] MEDS: ONDANSETRON INJ 4 MG/2 ML VIAL IV PUSH ×2 (13:29→19:02)
[2024-02-18] MEDS: fentaNYL CITRATE INJ (*CRX) 100 MCG/2 ML VIAL 25 MCG IV PUSH ×3 (13:34→14:46)
[2024-02-18] MEDS: diphenhydrAMINE HCl INJ 50 MG/ML VIAL 12.5 MG IV PUSH (13:58)
--- NOTE | 2024-02-18 15:15 | PC.NURSE ---
This patient, Chante Yung, was received from PACU on 02/18/24 at 1515. Patient/family oriented to unit policies and routines
[2024-02-18] MEDS: LACTATED RINGERS 1,000 ML 100 ML IV CONT (15:53)
[2024-02-18] MEDS: DOCUSATE SODIUM 100 MG CAPSULE PO (16:08)
[2024-02-18] MEDS: HYDROcodone/acetaminophen (*CRX) 10-325 MG TABLET 1 TAB PO ×2 (16:09→20:41)
--- NOTE | 2024-02-18 18:30 | PC.NURSE ---
Pt introductions made and plan of care discussed per post op bilateral mastectomy surgery, anesthesia, daily care activities and pain management PT and spouse and family all recipients of such care and no barriers to learning identified at this time. PT received such instructions per one to one discussion and demonstrations. PT verbalized understanding of such care.
[2024-02-18] MEDS: ACETAMINOPHEN 325 MG TABLET 650 MG PO (18:52)
[2024-02-18] MEDS: HYDROmorphone HCL INJ (*CRX) 1 MG/ML SYR IV PUSH (22:38)
[2024-02-19] MEDS: ACETAMINOPHEN 325 MG TABLET 650 MG PO ×3 (00:29→13:07)
[2024-02-19] MEDS: HYDROmorphone HCL INJ (*CRX) 1 MG/ML SYR IV PUSH (00:32)
[2024-02-19] MEDS: ONDANSETRON INJ 4 MG/2 ML VIAL IV PUSH (03:39)
[2024-02-19 03:49] VITALS: BP 139/71; PULSE 81; RESP 18; TEMP 36.7; O2SAT 95
[2024-02-19] MEDS: HYDROcodone/acetaminophen (*CRX) 10-325 MG TABLET 1 TAB PO (05:32)
[2024-02-19 07:45] VITALS: BP 136/69; PULSE 75; RESP 16; TEMP 36.4; O2SAT 100
--- NOTE | 2024-02-19 08:07 | PM.DS ---
DS: Admitting Diagnosis Discharge Date 02/19/2024 Admitting Diagnosis Breast Cancer DS: Summary Hospital Course Hospital Course: 63 y/o F with left breast cancer admitted through same day surgery for bilateral mastectomy and L SLNBx, tolerated procedure well, recovered well overnight, to be discharged home POD#1. Plan 1) drain care 2) PO pain rx, zofran 3) Breast surgery follow up 1 week Status at Discharge Cognitive/behavioral status at discharge: pt seen at bedside 7:15a, c/o nausea with emesis x 2 overnight, pain well managed, ambulating unassisted and voiding without issue, passing gas. denies MASON, fever/chills, bleeding/redness, SOB, chest pain, BLE pain, interval change in chest/breast size. Pt feels ready to go home today. Exam Narrative: sitting comfortably in bed. chest wrap c/d/i, mastectomy flaps wwp w cap refill <2 sec, no erythema/ecchymosis, minimal bilateral diffuse edema, moderate tenderness, no seroma/hematoma/fluctuance. drains maintaining neg pressure, with minimal dark sanguinous drainage. Const: General: comfortable and no acute distress Eyes: Sclera: sclerae normal Neck: Neck: no JVD Resp: Effort & Inspection: normal respiratory effort Cardio: Rate: regular rate Rhythm: regular rhythm GI: GI Palp: Yes Soft to palpation DS: Data Data Completed and Pending Pending studies at discharge: Pending at discharge 02/18/24 10:25 Surgical [PTH] Routine Surgical [PTH] Routine 02/18/24 11:41 Surgical [PTH] Routine 02/18/24 12:10 Surgical [PTH] Routine 02/18/24 12:14 Surgical [PTH] Routine 02/18/24 12:26 Surgical [PTH] Routine 02/18/24 12:34 Surgical [PTH] Routine Discharge Plan Discharge Patient Disposition: Home, Self-Care Discharge Instructions: Rosmery Jo MD [facility] [address] [place] [address] Post-operative Discharge Instructions Diet: As tolerated Activity: Avoid overhead movements with the affected arm/side for 2 weeks. You should walk at least 3-4 times daily, but do not exert yourself. Ok to go up and down stairs. Dressing: Wear the compression bandage at all times, including at night while sleeping. May adjust/straighten as necessary. Showering: No showers or baths while drain is in place. Ok for sponge baths. Drain Care: Strip the drain tubing at least once a day, and empty drain. Record the drain output and bring record to your follow up visit. Follow up: Return to the office in 1 week for post-op follow up visit. Call the office with any questions or concerns in the meantime. If after hours, please call the measurement operator to be connected to the surgeon. If you have an emergency , call 911 or go to the nearest ER. Stand Alone Forms: General Discharge Instructions Follow-up/Referrals: Rosmery Jo MD [Physician] - Discharge Medications: New hydrocodone-acetaminophen 5-325 mg tablet 1 tablet PO Q6H PRN (Reason: pain) Qty: 16 0RF ondansetron 4 mg tablet,disintegrating 4 mg PO Q8H PRN (Reason: nausea and vomiting) Qty: 12 0RF Continued alprazolam 0.25 mg tablet 0.25 mg PO BID PRN (Reason: anxiety) Qty: 60 1RF rosuvastatin 10 mg tablet 10 mg PO DAILY Qty: 90 3RF multivitamin Tablet 1 tablet PO DAILY B-complex with vitamin C Tablet 1 tablet PO DAILY calcium carbonate [Calcium 600] 600 mg calcium (1,500 mg) tablet 600 mg PO DAILY magnesium oxide 500 mg tablet 500 mg PO DAILY lisinopril-hydrochlorothiazide 20-12.5 mg tablet 1 tablet PO DAILY Qty: 90 1RF
[2024-02-19] MEDS: DOCUSATE SODIUM 100 MG CAPSULE PO (08:50)
[2024-02-19] MEDS: hydroCHLOROthiazide 12.5 MG CAPSULE PO (08:51)
[2024-02-19] MEDS: lisinopriL 20 MG TABLET PO (08:52)
[2024-02-19] MEDS: MULTIVITAMINS THERAPEUTIC TAB (*BKC) 1 TABLET PO (08:53)
[2024-02-19] MEDS: MAGNESIUM OXIDE 400 MG TABLET PO (08:53)
--- NOTE | 2024-02-19 14:39 | WPDANESPN ---
Anes - Prog Note Post-Op Date/Time: 02/19/24 14:39 Vital Signs: Last Vital Signs Temp 36.4 C 02/19/24 07:45 Pulse 75 02/19/24 07:45 Resp 16 02/19/24 07:45 BP 136/69 02/19/24 07:45 Pulse Ox 100 02/19/24 07:45 O2 Del Method Room Air 02/19/24 08:00 O2 Flow Rate 8 02/18/24 12:53 Pain Score (VAS): 0 I/O: Intake & Output 02/18/24 02/19/24 02/19/24 23:59 07:59 15:59 Intake Total 1240 140 Output Total 1662 23 13 Balance -422 -23 127 Patient Feedback: Patient satisfied with anesthetic care.
== END 2024-02-19 13:30 | disposition home or self-care (01) ==
LOC: ANHSURGERY 12:59 → ANHOB2 15:12
PROVIDERS: PCP Family Medicine; Visit Provider Surgery
PROC: (CPT 19303; principal; 2024-02-18 09:00)
DX: C50.412 Malignant neoplasm of upper-outer quadrant of left female breast (principal); Z17.1 Estrogen receptor negative status [ER-]; I10 Essential (primary) hypertension; E78.5 Hyperlipidemia, unspecified; F41.1 Generalized anxiety disorder; Z87.891 Personal history of nicotine dependence
CPT/HCPCS: 19303; 38525; 38900; 14301; 14302 ×6; 38792; 88305; 88307; 88342; 88360; 99199; A9270; A9520; J0330; J0690; J1100; J1171; J1200; J2003; J2250; J2371; J2405; J2704; J3010; J7120; Q9968

== ENCOUNTER 2024-03-26 01:22 | Day surgery (SDC) | payer OTHER, SELFPAY ==
[2024-03-16 15:05] VITALS: BMI 27.3
--- NOTE | 2024-03-16 15:18 | PC.NURSE ---
Report to the Outpatient Waiting Room, entrance under the green pavilion located off [facility], at time __0900 on date __03/26/24 . Planned Procedure Time: _1100 .? Time changes happen often and if your time is changed the preop area will call you the afternoon before. - You and your visitor will be asked to self-screen and do not enter if you have any COVID symptoms. Please call surgeon if you need to reschedule. - A mask is optional within the hospital at this time. Patients may have clear liquids (water, carbonated beverages, clear teas, apple juice) until 3 hours prior to surgery with a maximum of 20 ounces. - No food from midnight until time of surgery and no smoking - Infants may have breast milk until 4 hours before surgery, formula 6 hours prior to surgery. - Children will be allowed to drink immediately following surgery.? If applicable, please bring a bottle or sippy cup to assist with drinking. Juice, water, soda, and popsicles are readily available.? For infants on formula, please bring formula the day of surgery.? Pacifiers are allowed. Take only the following medications with a SIP of water on the morning of surgery: __Escitalopram, and alprazolam as needed DO NOT STOP ANY OF YOUR OTHER PRESCRIPTION MEDICATIONS PRIOR TO SURGERY EXCEPT THE FOLLOWING Medications to discontinue per physician _Vitamins and Supplements 3 days prior Please no make-up, nail bengali, hairspray, perfume, deodorant, or body powder the day of surgery.? No jewelry (including any body piercings) or valuables the day of surgery, leave them at home.? Please take a shower or bath the night before, or the morning of, surgery with an antibacterial soap.? Wear comfortable, loose fitting clothing.? Children are encouraged to wear pajamas. - Jewelry must be removed prior to entering the operating room.? Rings and piercings that are not removed may be cut off. - The hospital will not accept responsibility for valuables.? - Please leave all valuables, including medications, at home the day of surgery. If you are going home after surgery, a licensed locomotive driver must drive you home.? - NO public transportation without another adult if you receive anesthesia. - We recommend that an adult stay with you for 24 hours following discharge. - We also recommend that you do not drive, make important decision, drink alcoholic beverages, or take any drugs that were not prescribed by your health care provider for at least 24 hours after your discharge time. For Pediatric surgeries, we recommend two adults accompany the child home. Follow any additional instructions given to you from your surgeon. Telephone instructions given to __Chante and asked if any additional questions and then verbalized understanding. Patient advised to call surgeon office or pre surgery nurse liaison [phone] if any additional questions.
--- NOTE | ~2024-03-26 | XR_ITS ---
INTRAOPERATIVE FLUOROSCOPY: CLINICAL HISTORY: 63 years old Female; INSERTION ARTURO CATH RIGHT SIDE PROCEDURE COMMENTS: Limited intraoperative fluoroscopy of the superior mediastinum was performed. CUMULATIVE DOSE: 5.79 mGy FLUOROSCOPY TIME: 27.9 seconds FINDINGS/IMPRESSION: Please refer to operative note for further details. Reviewed, dictated and finalized at location A. ATIONS TEAM LEADER
--- NOTE | ~2024-03-26 | XR_ITS ---
EXAMINATION: XR chest port-a-cath/central DATE: 03/26/2024 12:01 INDICATION: Port placement. TECHNIQUE: A single frontal view of the chest was obtained. COMPARISON: Chest single view 07/27/2020 FINDINGS: There is mild atelectasis in left lower lung zone. There is no pneumonia, pleural effusion, or pneumothorax. The heart size is normal. There is a right subclavian port with tip in superior chelsey a cava. IMPRESSION: 1. Port tip in superior vena cava. Reviewed, dictated and finalized at location A. CH LANGUAGE PATHOLOGIST ASSISTANT
[2024-03-26 10:00] VITALS: BP 120/72; PULSE 70; RESP 16; TEMP 37.2; O2SAT 100; BMI 27.7
[2024-03-26] MEDS: LACTATED RINGERS 1,000 ML 30 ML IV CONT (10:04)
--- NOTE | 2024-03-26 10:26 | P.PNAN_ITS ---
Anes - Initial Pre Proc Eval Procedure: Operation Date: 03/26/24 11:00 Proposed Procedures p Insertion Soco Cath - Trevon Patel MD Date/Time: 03/26/24 10:26 Surgeon: Trevon Patel MD Pre Op Diagnosis: malignant neoplasm upper outer quadrant lft breast Patient Data Age: 63 Gender: F Height: 1.7 m Weight: 80.4 kg Last Vital Signs Temp 37.2 C 03/26/24 10:00 Pulse 70 03/26/24 10:00 Resp 16 03/26/24 10:00 BP 120/72 03/26/24 10:00 Pulse Ox 100 03/26/24 10:00 O2 Del Method Room Air 03/26/24 10:00 Allergies Allergy/AdvReac Type Severity Reaction Status Date / Time strawberry Allergy Intermediate Hives Verified 03/22/24 13:32 Home Medications Medication Instructions Recorded Confirmed Type B-complex with vitamin C 1 tablet PO DAILY 07/13/20 03/16/24 History calcium carbonate (Calcium 600) 600 mg PO DAILY 07/13/20 03/16/24 History magnesium oxide 500 mg PO DAILY 07/13/20 03/16/24 History multivitamin 1 tablet PO DAILY 07/13/20 03/16/24 History alprazolam 0.25 mg tablet 0.25 mg PO BID PRN anxiety #60 tabs 11/14/22 03/16/24 Rx lisinopril 20 1 tablet PO DAILY #90 tabs 12/08/23 03/16/24 Rx mg-hydrochlorothiazide 12.5 mg tablet rosuvastatin 10 mg tablet 10 mg PO DAILY #90 tabs 02/25/24 03/16/24 Rx escitalopram oxalate 10 mg tablet 10 mg PO DAILY #90 tabs 02/26/24 03/16/24 Rx Patient hx anesthesia problems: none Family hx anesthesia problems: none Results Review: All pre-operative results and documents have been reviewed as part of the pre- operative evaluation. [facility] Past Medical History Medical History (Updated 03/25/24 @ 15:41 by Neal Pierce DO) Ankle fracture, left trimaleolar 2020 Cholecystitis LAURA (generalized anxiety disorder) History of breast cancer Hyperlipidemia Hypertension Melanosis coli Thyroid nodule Surgical History Surgical History H/O colonoscopy with polypectomy 2018, repeat in 2023 History of appendectomy Hx of cholecystectomy Family History Family History Father Diabetes mellitus Family history of cardiovascular disease Mother Diabetes mellitus Hypertension Social History Social History Social History: Years smoked: 15 Smoking status: Former smoker Tobacco type: cigarettes Second hand tobacco smoke exposure: No Smoking end date: 02/08/14 Alcohol intake: current Drinks per week: 3 Alcohol use details: Occasionally Substance use: never Substance use type: does not use Do You Feel Safe in your Home?: Yes Lack of Transportation: No Lack of Food: Never True Current Housing: I Have Housing Concerned About Future Housing: No Difficulty Paying Gas/Electric Bills: No Difficulty Paying for Meds: No Currently Unemployed: No Education: High School Diploma/GED Difficulty w/ Childcare or Family Care: No Living arrangements: with family Additional living arrangements comments: Pt lives with her mother. Occupation/Education: retired Gender identity (if verbalized by the patient): Female Sexual Orientation (if Verbalized by the Patient): Straight or Heterosexual Spiritual care concerns: No Anes - Eval Final PreProcedure Day of Procedure 03/26/24 10:26 Patient weight: overweight Heart: regular rate and rhythm Lungs: clear to auscultation Airway: Mallampati scale class II Neurological: alert and oriented Last oral intake: >/= 8 hours ASA classification: III Emergent: no Anesthetic plan: proceed Anesthesia type and monitoring: general GIVS and standard monitoring Results Review: All pre-operative results and documents have been reviewed as part of the pre- operative evaluation. Informed Consent: The patient's anesthetic plan and its attendant risks and benefits were discussed with the patient/family/POA. Questions were solicited and answers provided to the satisfaction of the patient/family/POA.
--- NOTE | 2024-03-26 10:45 | P.HP_ITS ---
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 She is to have chemo tx and starts next week. She presents for portacatheter placement. No prior hx of port placement. Review of Systems Review of Systems: The remainder of the review of systems to include constitutional, HEENT, cardiovascular, respiratory, GI, , integumentary, musculoskeletal, endocrine, immunologic, hematologic, psychiatric, and neurologic are all negative except for which is mentioned above in the HPI. COUNTS INCLUDE 234 BEDS AT THE [facility] Past Medical History Medical History Ankle fracture, left trimaleolar 2020 Cholecystitis LAURA (generalized anxiety disorder) History of breast cancer Hyperlipidemia Hypertension Melanosis coli Thyroid nodule Surgical History Surgical History H/O colonoscopy with polypectomy 2018, repeat in 2023 History of appendectomy Hx of cholecystectomy Family History Family History Father Diabetes mellitus Family history of cardiovascular disease Mother Diabetes mellitus Hypertension Social History Social History Social History: Years smoked: 15 Smoking status: Former smoker Tobacco type: cigarettes Second hand tobacco smoke exposure: No Smoking end date: 02/08/14 Alcohol intake: current Drinks per week: 3 Alcohol use details: Occasionally Substance use: never Substance use type: does not use Do You Feel Safe in your Home?: Yes Lack of Transportation: No Lack of Food: Never True Current Housing: I Have Housing Concerned About Future Housing: No Difficulty Paying Gas/Electric Bills: No Difficulty Paying for Meds: No Currently Unemployed: No Education: High School Diploma/GED Difficulty w/ Childcare or Family Care: No Living arrangements: with family Additional living arrangements comments: Pt lives with her mother. Occupation/Education: retired Gender identity (if verbalized by the patient): Female Sexual Orientation (if Verbalized by the Patient): Straight or Heterosexual Spiritual care concerns: No Meds Home Medications and Allergies Home Medications Medication Instructions Recorded Confirmed Type B-complex with vitamin C 1 tablet PO DAILY 07/13/20 03/16/24 History calcium carbonate (Calcium 600) 600 mg PO DAILY 07/13/20 03/16/24 History magnesium oxide 500 mg PO DAILY 07/13/20 03/16/24 History multivitamin 1 tablet PO DAILY 07/13/20 03/16/24 History alprazolam 0.25 mg tablet 0.25 mg PO BID PRN anxiety #60 tabs 11/14/22 03/16/24 Rx lisinopril 20 1 tablet PO DAILY #90 tabs 12/08/23 03/16/24 Rx mg-hydrochlorothiazide 12.5 mg tablet rosuvastatin 10 mg tablet 10 mg PO DAILY #90 tabs 02/25/24 03/16/24 Rx escitalopram oxalate 10 mg tablet 10 mg PO DAILY #90 tabs 02/26/24 03/16/24 Rx Allergies Allergy/AdvReac Type Severity Reaction Status Date / Time strawberry Allergy Intermediate Hives Verified 03/22/24 13:32 Vital Signs Vital Signs - 24 hr 03/26/24 10:00 Temperature 37.2 C Pulse Rate 70 Respiratory Rate 16 Blood Pressure 120/72 Pulse Oximetry 100 Oxygen Delivery Room Air Exam Const: General: comfortable and no acute distress HENMT: Ears: TM's normal bilaterally Face/Nose/Sinus: Normal nares present Mouth: Yes moist mucous membranes Eyes: General: appearance normal, both eyes and all related structures Sclera: sclerae normal Pupils: Equal, round and reactive pupils present EOM: EOMs intact bilaterally Neck: Neck: supple and no JVD Chest: Other: Bilateral mastectomy incisions C/D/I, no redness or drainage. Resp: Effort & Inspection: normal respiratory effort Auscultation: clear to auscultation bilaterally Cardio: Rate: regular rate Rhythm: regular rhythm GI: GI Palp: Yes Soft to palpation, No Firmness to palpation present (GI), No Tenderness to palpation present (GI), No Guarding due to palpation present (GI) and No Hernia present Skin: General skin exam: normal color and no rashes or lesions noted Neuro: General: gait normal Speech: normal speech Motor exam (neuro): 5/5 motor strength present throughout Sensory Exam: normal sensation Extrem: General: normal to inspection Psych: Mental Status: mental status grossly normal Affect: normal affect Assessment and Plan Assessment and plan (1) Invasive ductal carcinoma of left breast: Code(s): C50.912 - Malignant neoplasm of unspecified site of left female breast Status: Acute Assessment and Plan: Pt presents for placement of portacatheter for chemo tx for triple negative invasive left breast CA. She had bilateral total mastectomy with left SLN bx for treatment. Mastectomy incisions are healing well. Proceed with placement of portacatheter today. Will plan on right side placement since she had left breast CA. Risks, benefits, indications, and expected outcomes were discussed in detail with the patient and/or family. They understand and I have answered all other questions. They wished to proceed with surgery as outlined above. Specific risk of iatrogenic pneumothorax and need for chest tube placement or bleeding needing a blood transfusion discussed. She understands.
--- NOTE | 2024-03-26 10:51 | WPDHPUPDATE1 ---
History and Physical Update Update Date/Time: 03/26/24 10:51 History and Physical has been reviewed, including an updated exam of the patient. There are NO changes in the patient's condition. Risks, benefits, and alternatives have been discussed and questions answered. Patient agrees to proceed with procedure.
[2024-03-26] MEDS: ceFAZolin 2 GM/D5W 50 ML 2 GM/50 ML BAG IVPB (10:55)
[2024-03-26] MEDS: BUPivacaine HCL 0.5% PF 30 ML VIAL INFILTRATE (10:55)
[2024-03-26] MEDS: LIDO 1%/EPINEPHRINE 1:100,000 50 ML VIAL 30 ML INFILTRATE (10:55)
[2024-03-26] MEDS: HEPARIN SODIUM 5,000 UNITS/ML VIAL 5000 UNITS IRRIGATION (11:12)
[2024-03-26] MEDS: HEPARIN SODIUM 1,000 UNITS/ML VIAL 1000 UNITS IV PUSH (11:12)
[2024-03-26 11:48] VITALS: BP 117/53; PULSE 67; RESP 16; O2SAT 100
--- NOTE | 2024-03-26 11:53 | P.OP_ITS ---
Procedure Note - Detailed Date of Procedure 03/26/24 Pre-op Diagnosis malignant neoplasm upper outer quadrant lft breast Post-op Diagnosis Same Procedure Performed Placement of right subclavian vein single-lumen port a catheter with intra operative fluoroscopy Surgeon Trevon Patel MD Child Support Officer Michi MARTINEZ Anesthesia MAC and Local Indications Patient is a 63-year-old female who recently underwent bilateral total mastectomy with left axillary sentinel lymph node biopsy for triple negative invasive ductal carcinoma of the left breast. She did not having immediate reconstruction of her breast. She is to undergo chemotherapy treatments and presents today for placement of presley catheter for chemotherapy treatments. Findings None significant Description of Procedure After informed consent was obtained patient brought to the operating room she was placed supine position then sedation was administered by anesthesia. The bilateral upper anterior neck and chest was then prepped and draped usual sterile fashion. A time-out was then performed correctly identifying the patient as well as procedure to be performed. She was given perioperative IV antibiotics. I then anesthetized an area just below the medial 3rd right clavicle. A transverse incision was then made this area the scalpel dissection carried down through the subcu tissue electrocautery. I then created a subcu taneous port pocket below the incision with a combination electrocautery dissection and blunt finger dissection just above the anterior pectoralis major fascia. I then placed the patient in the head-down Trendelenburg position then used a long 18gauge spinal needle to cannulate the right subclavian vein on the 1st pass any difficulty. There was prompt return of dark venous appearing blood. A guidewire was advanced through the needle into the right subclavian vein down into the superior vena cava. Intraoperative fluoroscopy was used to verify the proper positioning of the tip of the guidewire. I then advanced a dilator breakaway sheath over the guidewire into the superior vena cava. The dilator and guidewire were removed leaving the sheath in place. A 9.6 [place] single-lumen silastic catheter was then advanced through the sheath into the right subclavian vein subsequent down into the right atrium of the heart via the superior vena cava. Intraoperative fluoroscopy was then used to visualize the tip of the catheter then I pulled back on the catheter externals the chest wall into the tip of the catheter was in the distal superior vena cava. The catheter was then cut to appropriate length the skin level and attached to the titanium Smart Port. The port was then secured in subcutaneous port pocket on 3 sides utilizing 3-0 Prolene sutures. I then accessed the port aspirated blood easily and flushed with heparinized saline solution. I then irrigated the incision sterile saline solution and then hemostasis was good. I then close incision utilizing interrupted 3-0 Vicryl sutures in the subcutaneous tissues. The skin edges were approximated utilizing a running subcuticular 4-0 Monocryl suture. I then accessed the port 1 last time percutaneously and aspirated blood very easily and then flushed with 5000units of IV heparin. The areas then cleaned the skin glue was applied to the incision. The patient tolerated the procedure well no complications. All sponges, needles, and instrument counts were correct at the end procedure. EBL was _10__cc. The patient was awakened and taken to recovery in stable and satisfactory condition. Portable chest x-ray in recovery is pending at time of dictation. Implants 9.6 [place] single-lumen silastic catheter attached to titanium Smart Port placed via the right subclavian vein. Estimated Blood Loss 10 Drains No Packing No Pathology None sent Complications No immediate complications Condition Stable Disposition PACU [facility] Billing Surgery - Charge Forward: Surgery Billing
[2024-03-26 12:15] VITALS: BP 128/81; PULSE 93; RESP 18
[2024-03-26 12:45] VITALS: BP 141/75; PULSE 59; RESP 16
== END 2024-03-26 13:02 | disposition home or self-care (01) ==
PROVIDERS: PCP Family Medicine; Visit Provider Surgery
PROC: (CPT 36561; principal; 2024-03-26 11:00)
DX: C50.412 Malignant neoplasm of upper-outer quadrant of left female breast (principal); I10 Essential (primary) hypertension; E78.5 Hyperlipidemia, unspecified; F41.1 Generalized anxiety disorder; Z87.891 Personal history of nicotine dependence; Z17.1 Estrogen receptor negative status [ER-]
CPT/HCPCS: 36561; 77001; C1788; J0690; J1644; J2003; J2004; J2250; J2405; J2704; J3010; J7030; J7120

== ENCOUNTER 2024-03-30 08:42 | Outpatient (CLI) | payer OTHER, SELFPAY ==
--- NOTE | 2024-03-30 | ECHO_ITS ---
Patient Info Name: Chante Yung Age: 63 years : 1960 Gender: Female Ht: 67 in Wt: 175 lbs BSA: 1.95 m2 HR: 75 bpm BP: 137 / 84 mmHg Heart Rhythm: Sinus Rhythm Technical Quality: Poor Exam Date: 03/30/2024 9:08 AM Exam Location: Echo Lab Patient Status: Outpatient Admit Date: 03/30/2024 Staff Ordering Physician: Paulo Carrasco MD First Aid Officer: Lula Santamaria RDCS Attending Provider: Paulo Carrasco MD Referring Physician: Luna BEDOYA; Exam Type: CA echo dop color flow w con Study Info Indications C50.412 - Malignant neoplasm of upper-outer quadrant of left female breast Complete two-dimensional, color flow and Doppler transthoracic echocardiogram is performed with contrast to opacify the left ventricle and to improve the deliniation of the left ventricle endocardial borders. Strain analysis performed. Contrast/Agitated Saline Contrast/Ag. Saline: Definity Amount: 3.00 ml Administered By: Lula Santamaria RDCS New IV Access: Antecubital Space and Right Site Condition: No extravasation, Site dressing applied and IV removed Reason for Poor Study: poor echocardiographic windows Summary 1. Left ventricular chamber dimension is normal. 2. Left ventricular systolic function is normal with an ejection fraction by Biplane Method of Discs of 63 %. 3. The left ventricular diastolic function is grade I diastolic dysfunction. 4. Global longitudinal strain is abnormal at -14 %. 5. Right ventricular systolic function is normal. 6. No significant valvular disease. Left Ventricle Left ventricular chamber dimension is normal. There is no increased left ventricular wall thickness. Left ventricular systolic function is normal with an ejection fraction by Biplane Method of Discs of 63 %. The left ventricular diastolic function is grade I diastolic dysfunction. Global longitudinal strain is abnormal at -14 %. Right Ventricle Right ventricular chamber dimension is normal. Right ventricular systolic function is normal. Left Atria Left atrial chamber dimension is normal. Right Atria Right atrial chamber dimension is normal. Atrial Septum Intact interatrial septum visualized by color flow imaging. Aortic Valve The aortic valve is trileaflet. There is mild aortic valve sclerosis. There is no aortic valve stenosis. There is no aortic valve regurgitation. Pulmonic Valve The pulmonic valve is not well visualized. Mitral Valve There is trace mitral valve regurgitation. Tricuspid Valve There is trace tricuspid valve regurgitation. Pericardium/Pleural There is no pericardial effusion. Inferior Vena Cava Normal inferior vena cava with >50% collapse upon inspiration consistent with normal right atrial pressure, 3 mmHg. Aorta The aortic root size at the sinus of Valsalva is normal. Left Ventricular Outflow Tract Name Value Normal LVOT 2D LVOT Diameter 1.98 cm LVOT Doppler LVOT Peak Gradient 4 mmHg LVOT Mean Gradient 3 mmHg LVOT VTI 22.84 cm LVOT VTI/AV VTI Ratio 0.69 LVOT Stroke Volume 70.21 ml LVOT CO 5.25 l/min LVOT CI 2.69 L/min/m2 Pulmonic Valve Name Value Normal RVOT Doppler RVOT Peak Gradient 4 mmHg PV Doppler PV Peak Gradient 4 mmHg Mitral Valve Name Value Normal MV Doppler MV Decel Dubois 400.08 cm/s2 MV PHT 0 s MV Area (PHT) 3.95 cm2 4.00-5.00 MV Diastolic Function MV E Peak Velocity 76.78 cm/s MV A Peak Velocity 130.21 cm/s MV E/A 0.59 MV Decel Time 0 s Tricuspid Valve Name Value Normal TV Regurgitation Doppler TR Peak Velocity 257.17 cm/s TR Peak Gradient 26 mmHg Estimated PAP/RSVP RA Pressure 3 mmHg <=5 PA Systolic Pressure 29 mmHg <36 RV Systolic Pressure 29 mmHg <36 Aorta Name Value Normal Ascending Aorta Ao Root Diameter (MM) 3.22 cm Ao Root Diam Index (MM) 1.65 cm/m2 Aortic Valve Name Value Normal AV Doppler AV Peak Velocity 143.98 cm/s AV Peak Gradient 8 mmHg AV Mean Gradient 5 mmHg AV VTI 33.33 cm AV Area (Cont Eq VTI) 2.11 cm2 >=3.00 AV Area (Cont Eq Harvey) 2.24 cm2 AV Regurgitation 2D LVOT Area 3.07 cm2 Ventricles Name Value Normal LV Dimensions 2D/MM IVS Diastolic Thickness (2D) 0.90 cm 0.60-1.00 IVS Diastole Thickness (MM) 1.19 cm 0.60-0.90 LVID Diastole (2D) 4.93 cm 3.80-5.20 LVID Diastole (MM) 6.43 cm 3.80-5.20 LVIW Diastolic Thickness (2D) 0.77 cm 0.60-0.90 LVIW Diastolic Thickness (MM) 0.61 cm 0.60-0.90 LVID Systole (2D) 3.42 cm 2.20-3.50 LVID Systole (MM) 4.10 cm 2.20-3.50 LVOT Diameter 1.98 cm LV Mass (2D Cubed) 140.63 g 67.00-162.00 LV Mass Index (2D Cubed) 0.01 g/cm2 0.00-0.01 Relative Wall Thickness (2D) 0.31 LV Mass (MM Cubed) 244.59 g 67.00-162.00 LV Mass Index (MM Cubed) 0.01 g/cm2 0.00-0.01 Relative Wall Thickness (MM) 0.19 LV Fractional Shortening/Ejection Fraction 2D/MM LV Fractional Shortening (2D) 31 % 27-45 LV Fractional Shortening (MM) 36 % 27-45 LV EF (MM Teicholz) 65 % 54-74 LV EF (2D Teicholz) 58 % 54-74 LV Diastolic Volume (4C MOD) 82.49 ml LV EF (4C MOD) 63 % LV Diastolic Volume (2C MOD) 97.20 ml LV EF (2C MOD) 63 % LV Diastolic Volume (BP MOD) 89.84 ml 46.00-106.00 LV Diastolic Volume Index (BP MOD) 0.05 l/m2 0.03-0.06 LV Systolic Volume (BP MOD) 33.68 ml 14.00-42.00 LV Systolic Volume Index (BP MOD) 0.02 l/m2 0.01-0.02 LV EF (BP MOD) 63 % 54-74 LV Diastolic Length (4C) 7.93 cm LV Systolic Length (4C) 6.65 cm LV Stroke Volume (4C MOD) 52.28 ml Atria Name Value Normal LA Dimensions LA Dimension (MM) 3.77 cm 2.70-3.80 LA Volume (4C A-L) 38.42 ml LA Volume (BP A-L) 35.52 ml RA Dimensions RA Area (4C) 11.41 cm2 <=18.00 EchoPAC Name Value Normal AutoEF LVCO_BiP_Q (Tezf0PIT) 3.40 l/min LVEF_BiP_Q (Bcjb8SDC) 59 % LVSV_BiP_Q (Jolr9LUE) 47.04 ml LVVED_BiP_Q (Ohfg1TYJ) 79.98 ml LVVES_BiP_Q (Drcx9EBH) 32.94 ml HR_4Ch_Q (Bnkm4PCI) 74 1/min LVCO_4Ch_Q (Lxdg3BFA) 2.89 l/min LVEF_4Ch_Q (Itgc6OVE) 63 % LVLd_4Ch_Q (Fugr8LAO) 8.12 cm LVLs_4Ch_Q (Fgyj7QIS) 6.75 cm LVSV_4Ch_Q (Zpjh2JJB) 39.26 ml LVVED_4Ch_Q (Jyiv1VGM) 61.88 ml LVVES_4Ch_Q (Ixio8VVI) 22.62 ml HR_2Ch_Q (Bbcg2IFW) 73 1/min LVCO_2Ch_Q (Yvdp1XBY) 3.90 l/min LVEF_2Ch_Q (Dowx2FER) 52 % LVLd_2Ch_Q (Xukn0OYU) 8.15 cm LVLs_2Ch_Q (Esej6HTI) 6.63 cm LVSV_2Ch_Q (Ktlc7GVF) 53.24 ml LVVED_2Ch_Q (Qalu2JWM) 102.17 ml LVVES_2Ch_Q (Pkmq5SUS) 48.93 ml BRITTON AA peak sys SL (AWMA) 8 % AAS peak sys SL (AWMA) 18 % AI peak sys SL (AWMA) 20 % AL peak sys SL (AWMA) 14 % AP peak sys SL (AWMA) 15 % peak sys SL (AWMA) 17 % AVC (AWMA) 0 s BA peak sys SL (AWMA) 17 % BAS peak sys SL (AWMA) 18 % BI peak sys SL (AWMA) 16 % BL peak sys SL (AWMA) 20 % BP peak sys SL (AWMA) 16 % BS peak sys SL (AWMA) 17 % G peak SL(A2C) (AWMA) 15 % G peak SL(A4C) (AWMA) 15 % G peak SL(APLAX) (AWMA) 13 % G peak SL(Avg) (AWMA) 14 % MA peak sys SL (AWMA) 7 % MAS peak sys SL (AWMA) 16 % MD peak sys SL (AWMA) 22 % ML peak sys SL (AWMA) 8 % MP peak sys SL (AWMA) 8 % MS peak sys NAHED ([facility]) 18 % Report Signatures
[2024-03-30] MEDS: PERFLUTREN LIPID MICROSPHERES 1.5 ML VIAL DILUTED TO 10 ML TOTAL VOLUME IV PUSH (09:30)
--- NOTE | 2024-03-30 13:59 | IVDEFINITY ---
Prior to administration of IV Definity the patient was educated on the risks and benefits of the imaging enhancing agent including potential adverse side effects. The patient verbalized understanding. Allergies were verified. No exclusion criteria were identified and at least one of the following inclusion criteria were met: 1) physician request, 2) patient technically difficult to image (per the [place] [employer] Echocardiography guidelines of two or more segments not discernable within the apical view), or 3) questionable left ventricular function. ?
== END 2024-03-30 08:43 | disposition home or self-care (01) ==
LOC: ANHCARD 08:45
PROVIDERS: PCP Family Medicine; Visit Provider Internal Medicine Hematology & Oncology
DX: C50.412 Malignant neoplasm of upper-outer quadrant of left female breast (principal); Z17.0 Estrogen receptor positive status [ER+]; I51.9 Heart disease, unspecified
CPT/HCPCS: 93306; C8929; Q9957

== ENCOUNTER 2024-10-18 14:00 | Outpatient (CLI) | payer MEDICARE, SELFPAY ==
--- OUTSIDE RECORDS SUMMARY | 2024-10-18 14:25 | XMS_ITS | Clinical Summary ---
Author Organization [facility] Efrem Stanley Address [address] [place] [address] Care Team Providers Care Coagulator Name Role Phone Laura Doshi MD Primary Care Provider [phone]- [phone] Allergies No known active allergies Medications ALPRAZolam (XANAX) 0.25 mg tablet Take 0.25 mg by mouth nightly as needed. 4 Active lisinopril-hydr oCHLOROthiazide (ZESTORETIC) 20-12.5 mg tablet Take 1 Tablet by mouth daily. 4 Active rosuvastatin (CRESTOR) 10 mg tablet Take 1 Tablet by mouth daily. 4 Active escitalopram oxalate (LEXAPRO) 10 mg tablet Take 10 mg by mouth daily. Active ondansetron (ZOFRAN ODT) 8 mg Tablet, Rapid Dissolve Dissolve 1 tablet on top of tongue then swallow with saliva every 8 hours as needed for nausea or vomiting 30 Tablet 1 4 Active lidocaine-prilo dameon (EMLA) 2.5-2.5 % Cream Apply a quarter size amount to port site 30 minutes before access. 30 Gram 1 4 Active dexAMETHasone (DECADRON) 4 mg tablet Take 1 Tablet (4 mg) by mouth 2 times day before, day of, and day after treatment with cycles 5-8. 6 Tablet 3 4 Active prochlorperazin e maleate (COMPAZINE) 10 mg tablet Take 1 Tablet (10 mg) by mouth every 6 hours as needed for Nausea/Emesis. 30 Tablet 1 4 Active methylPREDNISol one (MEDROL DOSPACK) 4 mg Tablets, Dose Pack Use as directed 21 Tablet 1 4 Active traMADoL (ULTRAM) 50 mg tabletIndicatio ns:Malignant neoplasm of upper-outer quadrant of left breast in female, estrogen receptor negative (CMS/HCC) Take 1 Tablet (50 mg) by mouth every 8 hours as needed for Pain. 30 Tablet 5 Active Active Problems No known active problems Encounters Date Type Department Care Team Description 10/12/2024 External Device Data STL ABSTRACTION Provider, Abstract 10/11/2024 Orders Only [facility] - [place] [address] Paulo Carrasco MD Malignant neoplasm of upper-outer quadrant of left breast in female, estrogen receptor negative (CMS/HCC) 10/05/2024 External Device Data STL ABSTRACTION Provider, Abstract 09/27/2024 Orders Only [facility] - [place] [address] Paulo Carrasco MD Malignant neoplasm of upper-outer quadrant of left breast in female, estrogen receptor negative (CMS/HCC) 09/13/2024 Orders Only [facility] - [place] [address] [place] [id number] Paulo Carrasco MD Malignant neoplasm of upper-outer quadrant of left breast in female, estrogen receptor negative (CMS/HCC) 08/30/2024 Orders Only [facility] - [place] [address] [place] [id number] Paulo Carrasco MD Malignant neoplasm of upper-outer quadrant of left breast in female, estrogen receptor negative (CMS/HCC) 08/23/2024 1:00 PM CDT Office Visit [facility] - [place] [address] [place] [address] Paulo Carrasco MD Malignant neoplasm of upper-outer quadrant of left breast in female, estrogen receptor negative (CMS/HCC) (Primary Dx) 08/23/2024 Orders Only [facility] - [place] [address] [place] [address] Paulo Carrasco MD Malignant neoplasm of upper-outer quadrant of left breast in female, estrogen receptor negative (CMS/HCC) (Primary Dx) 08/17/2024 Orders Only [facility] - [place] [address] [place] [address] Paulo Carrasco MD 08/13/2024 Orders Only [facility] - [place] [address] [place] [address] Paulo Carrasco MD 08/04/2024 External Device Data STL ABSTRACTION Provider, Abstract 08/02/2024 Orders Only [facility] - [place] [address] [place] [address] Paulo Carrasco MD Malignant neoplasm of upper-outer quadrant of left breast in female, estrogen receptor negative (CMS/HCC) 07/24/2024 External Device Data STL ABSTRACTION Provider, Abstract 07/23/2024 External Device Data STL ABSTRACTION Provider, Abstract 07/20/2024 External Device Data STL ABSTRACTION Provider, Abstract 07/19/2024 Orders Only [facility] - [place] [address] [place] [address] Paulo Carrasco MD Malignant neoplasm of upper-outer quadrant of left breast in female, estrogen receptor negative (CMS/HCC) from Last 3 Months Family History Medical History Relation Name Comments No Known Problems Brother 1 No Known Problems Brother 2 Diabetes Father Diabetes Mother No Known Problems Sister Relation Name Status Comments Brother 1 Alive Brother 2 Alive Father Mother Alive Sister Alive Social History Tobacco Use Types Packs/Day Years Used Date Smoking Tobacco: Former Cigarettes 0.5 17 1 - 02/25/2014 Smokeless Tobacco: Never Tobacco Cessation:Counseling Given: Not Answered Alcohol Use Standard Drinks/Week Comments Yes 0 (1 standard drink = 0.6 oz pur e alcohol) socially Comments Unknown Sex and Gender Information Value Date Recorded Sex Assigned at Not on file Legal Sex Female 9:38 AM CDT Gender Identity Not on file Sexual Orientation Not on file Last Filed Vital Signs Vital Sign Reading Time Taken Comments Blood Pressure 134/75 08/23/2024 1:01 PM CDT Pulse 84 08/23/2024 1:01 PM CDT Temperature 36.1 C (97 F) 08/23/2024 1:01 PM CDT Respiratory Rate 16 08/23/2024 1:01 PM CDT Oxygen Saturation 95% 08/23/2024 1:01 PM CDT Inhaled Oxygen Concentration - - Weight 83.9 kg (185 lb) 08/23/2024 1:01 PM CDT Height 170.2 cm (5' 7) 02/13/2024 2:46 PM CDT Body Mass Index 28.98 02/13/2024 2:46 PM CDT Plan of Treatment Upcoming Encounters Date Type Department Care Team (Late st Contact Info) Description 11/23/2024 2:45 PM CDT Office Visit [facility] [place] [address] [facility] [address] [place] [address] Paulo Carrasco MD [address] [facility] [address] [place] [address] Health Maintenance Due Date Last Done Comments Pre-Diabetes and Diabetes Screening 1959 DTAP/TDAP/TD VACCINES (1 - Tdap) 11/14/1978 HPV/Cotest (21-29) 11/14/1980 CERVICAL CANCER SCREENING 11/14/1989 HPV/Cotest (30-65) 11/14/1989 PAP SMEAR 11/14/1989 BREAST CANCER SCREENING 1999 COLORECTAL SCREENING 11/14/2004 Colorectal Cancer Screening 11/14/2004 FIT-DNA Q 3 years 11/14/2004 FIT/FOBT Q 1 year 11/14/2004 Flex Sig/CT Colonography Q 5 years 11/14/2004 ZOSTER VACCINE (1 of 2) 11/14/2009 INFLUENZA VACCINE (#1) 2023 RSV VACCINE (60+ or ) (1 - 1-dose 75+ series) 11/14/2034 Procedures Procedure Name Priority Date/Time Associated Diagnosis Comments COMPREHENSIVE METABOLIC PANEL Routine 08/13/2024 1:32 PM CDT CANCER ANTIGEN 15-3 Routine 08/13/2024 8 :02 AM CDT from Last 3 Months Results * COMPREHENSIVE METABOLIC PANEL (08/13/2024 1:32 PM CDT) Blood Paulo Carrasco MD CHEMISTRY ORDERABLES Final Resu lt * CANCER ANTIGEN 15-3 (08/13/2024 8:02 AM CDT) Blood us Paulo Carrasco MD CHEMISTRY ORDERABLES Final Resu lt from Last 3 Months Insurance [employer] Care Teams Coagulator Relationship Specialty Start Date End Date Laura Doshi MD [address] [facility] [address] [place] [address] PCP - General Family Practice 02/13/24
[2024-10-18 14:45] LABS: Anion Gap 9 mmol/L (4-12); Blood Urea Nitrogen 13 mg/dL (7-17); Calcium 9.6 mg/dL (8.4-10.2); Carbon Dioxide 27 mmol/L (22-30); Chloride 100 mmol/L (98-107); Estimated Glomerular Filt Rate > 60; Glucose 95 mg/dL (65-110); Sodium 136 mmol/L (137-145)
== END 2024-10-18 14:01 | disposition home or self-care (01) ==
PROVIDERS: PCP Family Medicine; Visit Provider Anesthesiology
DX: I10 Essential (primary) hypertension (principal); Z01.818 Encounter for other preprocedural examination
CPT/HCPCS: 36415; 80048

== ENCOUNTER 2024-10-25 01:39 | Day surgery (SDC) | payer MEDICARE, SELFPAY ==
--- NOTE | 2024-10-18 08:40 | PC.NURSE ---
Report to the Outpatient Waiting Room, entrance under the green pavilion located off [facility], at time 1000 on date _10/25/24_. Planned Procedure Time: 1200_.? Time changes happen often and if your time is changed the preop area will call you the afternoon before. - You and your visitor will be asked to self-screen and do not enter if you have any COVID symptoms. Please call surgeon if you need to reschedule. - A mask is optional within the hospital at this time. Patients may have clear liquids (water, carbonated beverages, clear teas, apple juice) until 3 hours prior to surgery with a maximum of 20 ounces. - No food from midnight until time of surgery and no smoking, or chewing tobacco (or any form of nicotine). No chewing gum, candy or mints. - Infants may have breast milk until 4 hours before surgery, formula 6 hours prior to surgery. - Children will be allowed to drink immediately following surgery.? If applicable, please bring a bottle or sippy cup to assist with drinking. Juice, water, soda, and popsicles are readily available.? For infants on formula, please bring formula the day of surgery.? Pacifiers are allowed. Take only the following medications with a SIP of water on the morning of surgery: __ESCITALAPRAM, XANAX IF NEEDED DO NOT STOP ANY OF YOUR OTHER PRESCRIPTION MEDICATIONS PRIOR TO SURGERY EXCEPT THE FOLLOWING Hold all vitamins and supplements for 3 days per anesthesiologist. Medications to discontinue per physician Date to take last dose Please no make-up, nail stateless, hairspray, perfume, deodorant, or body powder the day of surgery.? No jewelry (including any body piercings) or valuables the day of surgery, leave them at home.? Please take a shower or bath the night before, or the morning of, surgery with HIBICLENS antibacterial soap.? Wear comfortable, loose fitting clothing.? Children are encouraged to wear pajamas. - Jewelry must be removed prior to entering the operating room.? Rings and piercings that are not removed may be cut off. - The hospital will not accept responsibility for valuables.? - Please leave all valuables, including medications, at home the day of surgery. If you are going home after surgery, a licensed regional otr company driver must drive you home.? - NO public transportation without another adult if you receive anesthesia. - We recommend that an adult stay with you for 24 hours following discharge. - We also recommend that you do not drive, make important decision, drink alcoholic beverages, or take any drugs that were not prescribed by your health care provider for at least 24 hours after your discharge time. For Pediatric surgeries, we recommend two adults accompany the child home. Follow any additional instructions given to you from your surgeon. Telephone instructions given to _PATIENT__and asked if any additional questions and then verbalized understanding. Patient advised to call surgeon office or pre surgery nurse liaison [phone] if any additional questions.
[2024-10-18 09:24] VITALS: BMI 29.1
--- OUTSIDE RECORDS SUMMARY | 2024-10-25 01:41 | XMS_ITS | Encounter Summary ---
Author Organization [facility] [employer] [facility] Address [address] [place] [address] Care Team Providers Care Stippler Name Role Phone Laura Doshi MD Primary Care Provider [phone]- [phone] Encounter Details Date Type Department Care Team (Late Contact Info) Description 10/25/2024 Orders Only [facility] [address] [place] [address] Paulo Carrasco MD [address] [place] [address] Malignant neoplasm of upper-outer quadrant of left breast in female, estrogen receptor negative (CMS/HCC) Social History Tobacco Use Types Packs/Day Years Used Date Smoking Tobacco: Former Cigarettes 0.5 17 1 - 02/25/2014 Smokeless Tobacco: Never Alcohol Use Standard Drinks/Week Comments Yes 0 (1 standard drink = 0.6 oz pur e alcohol) socially Comments Unknown Sex and Gender Information Value Date Recorded Sex Assigned at Not on file Legal Sex Female 9:38 AM CDT Gender Identity Not on file Sexual Orientation Not on file documented as of this encounter Plan of Treatment Upcoming Encounters Date Type Department Care Team (Late st Contact Info) Description 11/23/2024 2:45 PM CDT Office Visit [facility] [place] [address] [place] [address] Paulo Carrasco MD [address] [place] [address] documented as of this encounter Visit Diagnoses Diagnosis Malignant neoplasm of upper-outer quadrant of left breast in female, estrogen receptor negative (CMS/HCC) documented in this encounter Care Teams Stippler Relationship Specialty Start Date End Date Laura Doshi MD [address] [facility] [[email or web address]] [address] [place] [address] PCP - General Family Practice 02/13/24 documented as of this encounter
--- OUTSIDE RECORDS SUMMARY | 2024-10-25 01:41 | XMS_ITS | Clinical Summary ---
Author Organization [facility] Efrem Stanley Address [address] [place] [address] Care Team Providers Care Magazine Grinder Loader Name Role Phone Laura Doshi MD Primary Care Provider [phone]- [phone] Allergies No known active allergies Medications ALPRAZolam [...] Encounters Date Type Department Care Team Description 10/25/2024 Orders Only [facility] and H[facility]ology - [place] [address] Paulo Carrasco MD Malignant neoplasm of upper-outer quadrant of left breast in female, estrogen receptor negative (CMS/HCC) 10/12/2024 External Device Data STL ABSTRACTION Provider, Abstract 10/11/2024 Orders Only [facility] Oncology and Hematology - [place] [address] Paulo Carrasco MD Malignant neoplasm of upper-outer quadrant of left breast in female, estrogen receptor negative (CMS/HCC) 10/05/2024 External Device Data STL ABSTRACTION Provider, Abstract 09/27/2024 Orders Only [facility] and H[facility]ology - [place] [address] Paulo Carrasco MD Malignant neoplasm of upper-outer quadrant of left breast in female, estrogen receptor negative (CMS/HCC) 09/13/2024 Orders Only [facility] and Hematology - [place] [address] Paulo Carrasco MD Malignant neoplasm of upper-outer quadrant of left breast in female, estrogen receptor negative (CMS/HCC) 08/30/2024 Orders Only [facility] Oncology and Hematology - [place] [address] [place] [id number] Paulo Carrasco MD Malignant neoplasm of upper-outer quadrant of left breast in female, estrogen receptor negative (CMS/HCC) 08/23/2024 1:00 PM CDT Office Visit [facility] On[facility] and Hematology - [place] [address] [place] [address] Paulo Carrasco MD Malignant neoplasm of upper-outer quadrant of left breast in female, estrogen receptor negative (CMS/HCC) (Primary Dx) 08/23/2024 Orders Only [facility] Oncology and Hematology - [place] [address] [place] [address] Paulo Carrasco MD Malignant neoplasm of upper-outer quadrant of left breast in female, estrogen receptor negative (CMS/HCC) (Primary Dx) 08/17/2024 Orders Only [facility] Oncology and Hematology - [place] [address] [place] [address] Paulo Carrasco MD 08/13/2024 Orders Only [facility] and Hematology - [place] [address] [place] [address] Paulo Carrasco MD 08/04/2024 External Device Data STL ABSTRACTION Provider, Abstract 08/02/2024 Orders Only [facility]cology and Hematology - [place] [address] [place] [address] Paulo Carrasco MD Malignant neoplasm of upper-outer [...] Description 11/23/2024 2:45 PM CDT Office Visit [facility] Oncology and Hematology [facility] [address] [facility] [place] [address] [place] [address] Paulo Carrasco MD [address] [facility] [address] [place] [address] Health Maintenance Due Date Last [...] ANTIGEN 15-3 (08/13/2024 8:02 AM CDT) Blood Paulo Carrasco MD CHEMISTRY ORDERABLES Final Resu lt from Last 3 Months Insurance [employer] [facility] Care Teams Magazine Grinder Loader Relationship Specialty Start Date End Date Laura Doshi MD [address] [place] [address] [place] [address] PCP - General Family Practice 02/13/24
[2024-10-25 10:10] VITALS: BP 132/74; PULSE 69; RESP 16; TEMP 36.2; O2SAT 100; BMI 29.0
[2024-10-25] MEDS: LACTATED RINGERS 1,000 ML 30 ML IV CONT (10:51)
--- NOTE | 2024-10-25 12:08 | PM.IMHP ---
H&P: HPI History of Present Illness Date/Time: 10/25/24 12:08 Chief Complaint: Hx of right breast cancer Narrative: Pt had right SC vein port placed about 8 months ago for breast ca treatment. She no longer needs the port now. Presents for port removal today. Review of Systems Review of Systems: The remainder of the review of systems to include constitutional, HEENT, cardiovascular, respiratory, GI, , integumentary, musculoskeletal, endocrine, immunologic, hematologic, psychiatric, and neurologic are all negative except for which is mentioned above in the HPI. [facility] Past Medical History Medical History History of breast cancer Ankle fracture, left trimaleolar 2020 Melanosis coli Cholecystitis Hyperlipidemia LAURA (generalized anxiety disorder) Thyroid nodule Hypertension Surgical History Surgical History H/O colonoscopy with polypectomy 2018, repeat in 2023 Hx of cholecystectomy History of appendectomy Family History Family History Father Diabetes mellitus Family history of cardiovascular disease Mother Diabetes mellitus Hypertension Social History Social History (Updated 10/22/24 @ 10:08 by Doreen Mclaughlin) Social History: Smoking packs per day: 0.25 Smoking cigarettes per day: 5.0 Years smoked: 20 Smoking pack-years: 5.00 Smoking status: Former smoker Tobacco type: cigarettes Second hand tobacco smoke exposure: No Smoking end date: 02/08/14 Additional smoking assessment comments: QUIT 2017 Alcohol intake: current Drinks per week: 3 Alcohol use details: 2 PER MONTH Substance use: never Substance use type: does not use Do You Feel Safe in your Home?: Yes Lack of Transportation: No Lack of Food: Never True Current Housing: I Have Housing Concerned About Future Housing: No Difficulty Paying Gas/Electric Bills: No Difficulty Paying for Meds: No Currently Unemployed: YES Education: Don't Know Difficulty w/ Childcare or Family Care: No Living arrangements: with family Additional living arrangements comments: Pt lives with her mother. Occupation/Education: retired Gender identity (if verbalized by the patient): Female Sexual Orientation (if Verbalized by the Patient): Straight or Heterosexual Spiritual care concerns: No Meds Home Medications and Allergies Home Medications ?Medication ?Instructions ?Recorded ?Confirmed ?Type B-complex with vitamin C 1 tablet PO DAILY 07/13/20 10/25/24 History calcium carbonate (Calcium 600) 600 mg PO DAILY 07/13/20 10/25/24 History magnesium oxide 500 mg PO DAILY 07/13/20 10/25/24 History multivitamin 1 tablet PO DAILY 07/13/20 10/25/24 History ascorbic acid (vitamin C) 500 mg 500 mg PO DAILY 03/31/24 10/25/24 History capsule,extended release zinc 50 mg tablet 50 mg PO DAILY 03/31/24 10/25/24 History biotin 10,000 mcg capsule 10,000 mcg PO DAILY 10/18/24 10/25/24 History alprazolam 0.25 mg tablet 0.25 mg PO BID PRN anxiety #60 tabs 10/22/24 10/25/24 Rx escitalopram oxalate 10 mg tablet See Rx Instructions .Route 10/22/24 10/22/24 Rx .COMPLEX #90 tabs gabapentin 100 mg capsule 200 mg (2 x 100 mg) PO TID #180 10/22/24 10/25/24 Rx caps lisinopril 20 See Rx Instructions .Route 10/22/24 10/25/24 Rx mg-hydrochlorothiazide 12.5 mg .COMPLEX #90 tabs tablet rosuvastatin 10 mg tablet 10 mg PO HS #90 tabs 10/22/24 10/25/24 Rx Allergies Allergy/AdvReac Type Severity Reaction Status Date / Time No Known Allergies Allergy Verified 10/25/24 10:46 Vital Signs Vital Signs - 24 hr 10/25/24 10:10 Temperature 36.2 C L Pulse Rate 69 Respiratory Rate 16 Blood Pressure 132/74 Pulse Oximetry 100 Oxygen Delivery Room Air Exam Const: General: comfortable and no acute distress HENMT: Ears: TM's normal bilaterally Face/Nose/Sinus: Normal nares present Mouth: Yes moist mucous membranes Eyes: General: appearance normal, both eyes and all related structures Sclera: sclerae normal Pupils: Equal, round and reactive pupils present EOM: EOMs intact bilaterally Neck: Neck: supple and no JVD Chest: Other: Right upper chest wall port in place, no redness or tenderness. Resp: Effort & Inspection: normal respiratory effort Auscultation: clear to auscultation bilaterally Cardio: Rate: regular rate Rhythm: regular rhythm GI: GI Palp: Yes Soft to palpation, No Firmness to palpation present (GI), No Tenderness to palpation present (GI), No Guarding due to palpation present (GI) and No Hernia present Skin: General skin exam: normal color and no rashes or lesions noted Neuro: General: gait normal Speech: normal speech Motor exam (neuro): 5/5 motor strength present throughout Sensory Exam: normal sensation Extrem: General: normal to inspection Psych: Mental Status: mental status grossly normal Affect: normal affect Assessment and Plan Assessment and plan (1) Invasive ductal carcinoma of left breast: Code(s): C50.912 - Malignant neoplasm of unspecified site of left female breast Status: Acute Assessment and Plan: Pt no longer needs her right SC portacatheter. Will remove today. Risks, benefits, indications, and expected outcomes were discussed in detail with the patient and/or family. They understand and I have answered all other questions. They wished to proceed with surgery as outlined above.
--- NOTE | 2024-10-25 12:08 | WPDANESEPPF ---
Anes - Initial Pre Proc Eval Procedure: Operation Date: 10/25/24 12:00 Proposed Procedures p Removal Soco Cath - Trevon Patel MD Date/Time: 10/25/24 12:08 Surgeon: Trevon Patel MD Pre Op Diagnosis: malignant neoplasm of left breast Patient Data Age: 63 Gender: F Height: 1.7 m Weight: 83.9 kg Last Vital Signs Temp 97.1 F L 10/25/24 10:10 Pulse 69 10/25/24 10:10 Resp 16 10/25/24 10:10 BP 132/74 10/25/24 10:10 Pulse Ox 100 10/25/24 10:10 O2 Del Method Room Air 10/25/24 10:10 Allergies Allergy/AdvReac Type Severity Reaction Status Date / Time No Known Allergies Allergy Verified 10/25/24 10:46 Home Medications ?Medication ?Instructions ?Recorded ?Confirmed ?Type B-complex with vitamin C 1 tablet PO DAILY 07/13/20 10/25/24 History calcium carbonate (Calcium 600) 600 mg PO DAILY 07/13/20 10/25/24 History magnesium oxide 500 mg PO DAILY 07/13/20 10/25/24 History multivitamin 1 tablet PO DAILY 07/13/20 10/25/24 History ascorbic acid (vitamin C) 500 mg 500 mg PO DAILY 03/31/24 10/25/24 History capsule,extended release zinc 50 mg tablet 50 mg PO DAILY 03/31/24 10/25/24 History biotin 10,000 mcg capsule 10,000 mcg PO DAILY 10/18/24 10/25/24 History alprazolam 0.25 mg tablet 0.25 mg PO BID PRN anxiety #60 tabs 10/22/24 10/25/24 Rx escitalopram oxalate 10 mg tablet See Rx Instructions .Route 10/22/24 10/22/24 Rx .COMPLEX #90 tabs gabapentin 100 mg capsule 200 mg (2 x 100 mg) PO TID #180 10/22/24 10/25/24 Rx caps lisinopril 20 See Rx Instructions .Route 10/22/24 10/25/24 Rx mg-hydrochlorothiazide 12.5 mg .COMPLEX #90 tabs tablet rosuvastatin 10 mg tablet 10 mg PO HS #90 tabs 10/22/24 10/25/24 Rx Patient hx anesthesia problems: none Family hx anesthesia problems: none Results Review: All pre-operative results and documents have been reviewed as part of the pre-operative evaluation. [facility] Past Medical History Medical History History of breast cancer Ankle fracture, left trimaleolar 2020 Melanosis coli Cholecystitis Hyperlipidemia LAURA (generalized anxiety disorder) Thyroid nodule Hypertension Surgical History Surgical History H/O colonoscopy with polypectomy 2018, repeat in 2023 Hx of cholecystectomy History of appendectomy Family History Family History Father Diabetes mellitus Family history of cardiovascular disease Mother Diabetes mellitus Hypertension Social History Social History (Updated 10/22/24 @ 10:08 by Doreen Mclaughlin) Social History: Smoking packs per day: 0.25 Smoking cigarettes per day: 5.0 Years smoked: 20 Smoking pack-years: 5.00 Smoking status: Former smoker Tobacco type: cigarettes Second hand tobacco smoke exposure: No Smoking end date: 02/08/14 Additional smoking assessment comments: QUIT 2017 Alcohol intake: current Drinks per week: 3 Alcohol use details: 2 PER MONTH Substance use: never Substance use type: does not use Do You Feel Safe in your Home?: Yes Lack of Transportation: No Lack of Food: Never True Current Housing: I Have Housing Concerned About Future Housing: No Difficulty Paying Gas/Electric Bills: No Difficulty Paying for Meds: No Currently Unemployed: YES Education: Don't Know Difficulty w/ Childcare or Family Care: No Living arrangements: with family Additional living arrangements comments: Pt lives with her mother. Occupation/Education: retired Gender identity (if verbalized by the patient): Female Sexual Orientation (if Verbalized by the Patient): Straight or Heterosexual Spiritual care concerns: No Anes - Eval Final PreProcedure Day of Procedure 10/25/24 12:08 Patient weight: normal Heart: regular rate and rhythm Lungs: clear to auscultation Airway: Mallampati scale class II Neurological: alert and oriented Last oral intake: >/= 8 hours ASA classification: III Emergent: no Anesthetic plan: proceed Anesthesia type and monitoring: general GIVS and standard monitoring Results Review: All pre-operative results and documents have been reviewed as part of the pre-operative evaluation. Informed Consent: The patient's anesthetic plan and its attendant risks and benefits were discussed with the patient/family/POA. Questions were solicited and answers provided to the satisfaction of the patient/family/POA.
--- NOTE | 2024-10-25 12:11 | WPDHPUPDATE1 ---
History and Physical Update Update Date/Time: 10/25/24 12:11 History and Physical has been reviewed, including an updated exam of the patient. There are NO changes in the patient's condition. Risks, benefits, and alternatives have been discussed and questions answered. Patient agrees to proceed with procedure.
[2024-10-25] MEDS: BUPivacaine HCL 0.5% 10 ML AMP 20 ML INFILTRATE (12:35)
[2024-10-25] MEDS: LIDO 1%/EPINEPHRINE 1:100,000 20 ML VIAL INFILTRATE (12:36)
[2024-10-25 13:05] VITALS: BP 92/53; PULSE 70; RESP 12; O2SAT 100
--- NOTE | 2024-10-25 13:19 | P.OP_ITS ---
Procedure Note - Detailed Date of Procedure 10/25/24 Pre-op Diagnosis History of malignant neoplasm of left breast Post-op Diagnosis Same Procedure Performed Removal of right subclavian vein single-lumen port a catheter. Surgeon Trevon Patel MD Campus Wellness Coordinator CARMINA Greco Anesthesia MAC Indications Patient is a 63-year-old female who had left breast cancer last year. She had placement of presley catheter for treatment. She has completed treatment no longer needs her Port-A-Cath and presents for removal today. Findings None significant Description of Procedure After informed consent was obtained patient brought to the operating room placed supine position and IV sedation was administered by anesthesia. The right upper anterior neck and chest was then prepped and draped usual sterile fashion. Time-out was then performed correctly identifying the patient as well as procedure to be performed. She was given perioperative IV antibiotics. 1% lidocaine mixed with 0.5% Marcaine was then injected around the old scar in the right upper anterior chest. A small elliptical incision was made to excise out the scar with the scalpel. Dissection was then carried down through the subcutaneous tissues with electrocautery to encounter the hub to the port. I then dissected distally to identify the proximal portion the catheter and then a circular catheter with a clamp. Then with gentle traction on the catheter removed from the right subclavian vein. The tip was intact. Pressure was held the area the right subclavian vein to achieve hemostasis. The port was then excised from the subcutaneous port pocket utilized electrocautery. All 3 sutures were cut and removed. The port was then discarded. I then fulgurated the capsule in the subcutaneous port pocket with electrocautery. I irrigated the incision sterile saline solution hemostasis was good. I then close incision utilizing interrupted 3-0 Vicryl sutures in subcutaneous tissues. Skin edges then approximated utilizing a running subcuticular 4 Monocryl suture. The incision was then cleaned the skin glue was applied. The patient tolerated the procedure well no complications. All sponges, needles, and instrument counts were correct at the end procedure. EBL was _2__cc. The patient was awakened and taken to recovery in stable and satisfactory condition. Implants None Estimated Blood Loss 2 Drains No Packing No Pathology None sent Complications No immediate complications Condition Stable Disposition PACU [facility] Billing Surgery - Charge Forward: Surgery Billing
--- NOTE | 2024-10-25 13:25 | WPDHPUPDATE1 ---
History and Physical Update Update Date/Time: 10/25/24 13:25 History and Physical has been reviewed, including an updated exam of the patient. There are NO changes in the patient's condition. Risks, benefits, and alternatives have been discussed and questions answered. Patient agrees to proceed with procedure.
[2024-10-25 13:35] VITALS: BP 151/68; PULSE 63
[2024-10-25 14:00] VITALS: BP 151/78; PULSE 62
== END 2024-10-25 14:15 | disposition home or self-care (01) ==
PROVIDERS: PCP Family Medicine; Visit Provider Surgery
PROC: (CPT 36589; principal; 2024-10-25 12:00)
DX: Z45.2 Encounter for adjustment and management of vascular access device (principal); Z85.3 Personal history of malignant neoplasm of breast
CPT/HCPCS: 36590; J0690; J2004; J2250; J2405; J2704; J3010; J7120

== ENCOUNTER 2024-11-23 10:42 | Outpatient (CLI) | payer MEDICARE, SELFPAY ==
--- OUTSIDE RECORDS SUMMARY | 2024-11-23 10:44 | XMS_ITS | Clinical Summary ---
Author Organization [facility] Efrem Stanley Address [address] [place] [address] Care Team Providers Care Flat Surfacer Name Role Phone Laura Doshi MD Primary Care Provider +1- [phone] Allergies No known active allergies Medications ALPRAZolam [...] Encounters Date Type Department Care Team Description 11/22/2024 Orders Only [facility] Oncology and Hematology - [place] [address] Paulo Carrasco MD Malignant neoplasm of upper-outer quadrant of left breast in female, estrogen receptor negative (CMS/HCC) 11/09/2024 External Device Data STL ABSTRACTION Provider, Abstract 11/09/2024 Orders Only [facility] Oncology and Hematology - [place] [address] [place] [id number] Paulo Carrasco MD 11/08/2024 Orders Only [facility] Oncology and Hematology - [place] [address] [place] [id number] Paulo Carrasco MD Malignant neoplasm of upper-outer quadrant of left breast in female, estrogen receptor negative (CMS/HCC) 10/25/2024 Orders Only [facility] Oncology and Hematology - [place] [address] [place] [id number] Paulo Carrasco MD Malignant neoplasm of upper-outer quadrant of left breast in female, estrogen receptor negative (CMS/HCC) 10/12/2024 External Device Data STL ABSTRACTION Provider, Abstract 10/11/2024 Orders Only [facility] Oncology and Hematology - [place] [address] [place] [id number] Paulo Carrasco MD Malignant neoplasm of upper-outer quadrant of left breast in female, estrogen receptor negative (CMS/HCC) 10/05/2024 External Device Data STL ABSTRACTION Provider, Abstract 09/27/2024 Orders Only [facility] Oncology and Hematology - [place] [address] [place] [address] Paulo Carrasco MD Malignant neoplasm of upper-outer quadrant of left breast in female, estrogen receptor negative (CMS/HCC) 09/13/2024 Orders Only [facility] Oncology and Hematology [facility] [address] [place] [address] Paulo Carrasco MD Malignant neoplasm of upper-outer quadrant of left breast in female, estrogen receptor negative (CMS/HCC) 08/30/2024 Orders Only [facility] Oncology and Hematology [place] [address] [place] [address] Paulo Carrasco MD Malignant neoplasm of upper-outer [...] Care Team (Late st Contact Info) Description 12/07/2024 2:15 PM CDT Office Visit [facility] Oncology and Hematology - [place] [address] [facility] 200 [place] [address] Paulo Carrasco MD [address] [facility] [address] [place] [address] Health Maintenance Due Date Last Done Comments Pre-Diabetes and Diabetes Screening 1959 DTAP/TDAP/TD VACCINES (1 - Tdap) 11/14/1978 BREAST CANCER SCREENING 1999 COLORECTAL SCREENING 11/14/2004 Colorectal Cancer Screening 11/14/2004 FIT-DNA Q 3 years 11/14/2004 FIT/FOBT Q 1 year 11/14/2004 Flex Sig/CT Colonography Q 5 years 11/14/2004 PNEUMOCOCCAL VACCINE 50+ YEARS (1 of 1 - PCV) 11/15/19 10 ZOSTER VACCINE (1 of 2) 11/14/2009 Medicare Advantage (NE) Prev entative Visit/Annual Wellness Visit 05/19/2024 OSTEOPOROSIS SCREENING 11/14/2024 INFLUENZA VACCINE (#1) 2024 RSV VACCINE (60+ or ) (1 - 1-dose 75+ series) 11/14/2034 Procedures Procedure Name Priority Date/Time Associated Diagnosis Comments CBC WITH DIFFERENTIAL Routine 11/09/2024 5:37 PM CDT CBC WITH DIFFERENTIAL Routine 11/09/2024 3:26 PM CDT from Last 3 Months Results * CBC WITH DIFFERENTIAL (11/09/2024 5:37 PM CDT) Only the most recent of2 resultswithin the time period is included. Blood us Paulo Carrasco MD HEMATOLOGY ORDERABLES Final Res ult from Last 3 Months Insurance [facility] [id number] Care Teams Flat Surfacer Relationship Specialty Start Date End Date Laura Doshi MD [address] [place] [address] PCP - General Family Practice 02/13/24
--- OUTSIDE RECORDS SUMMARY | 2024-11-23 10:44 | XMS_ITS | Encounter Summary ---
Author Organization [facility] [employer] [facility] Address [address] [place] [address] Care Team Providers Care Clinical Field Specialist Name Role Phone Laura Doshi MD Primary Care Provider +1- [phone] Encounter Details Date Type Department Care Team (Late Contact Info) Description 11/22/2024 Orders Only [facility] Oncology and Hematology [facility] [address] [place] [address] Paulo Carrasco MD [address] [email or web address] [address] [place] [address] Malignant neoplasm of upper-outer quadrant [...] Description 12/07/2024 2:15 PM CDT Office Visit [facility] Oncology and Hematology [place] [address] [place] [address] Paulo Carrasco MD [address] [email or web address] [address] [place] [address] documented as of this encounter Visit Diagnoses Diagnosis Malignant neoplasm of upper-outer quadrant of left breast in female, estrogen receptor negative (CMS/HCC) documented in this encounter Care Teams Clinical Field Specialist Relationship Specialty Start Date End Date Laura Doshi MD [address] [facility] [address] [place] [address] PCP - General Family Practice 02/13/24 documented as of this encounter
[2024-11-23 11:04] LABS: Hematocrit 35.5 % (37.0-47.0); Hemoglobin 11.7 g/dL (12.0-15.0); Immature Granulocyte Percent A 0.0 % (0-0.5); Lymphocytes Absolute Auto 0.97 K/mm3 (0.9-3.2); Mean Corpuscular HGB Conc 33.0 g/dl (32-36); Mean Corpuscular Hemoglobin 33.1 pg (26-34); Mean Corpuscular Volume 100.6 fl (80-100); Nucleated Red Blood Cells Absolute Auto 0.000 K/mm3 (0.0-0.012); Nucleated Red Blood Cells Perc 0.0 % (0.0-0.2); Platelet Count Result 189 k/mm3 (150-375); Red Blood Count 3.53 M/mm3 (4.2-5.4); White Blood Count 3.0 K/mm3 (4.5-10.0)
[2024-11-23 11:12] LABS: Blood Urea Nitrogen 10 mg/dL (8-26); Carbon Dioxide 25 mmol/L (22-30); Chloride 102 mmol/L (98-109); Estimated Glomerular Filt Rate > 60; Glucose 101 mg/dL (70-105); Ionized Calcium (POC) 1.19 mmol/L (1.11-1.31); Potassium 4.3 mmol/L (3.5-4.9); Sodium 139 mmol/L (138-146)
[2024-11-23 12:56] LABS: Alanine Aminotransferase 43 U/L (6-35); Albumin Level 4.2 g/dL (3.5-5.1); Alkaline Phosphatase 51 U/L (38-126); Anion Gap 7 mmol/L (4-12); Aspartate Amino Transferase 58 U/L (14-36); Bilirubin,Total 0.4 mg/dL (0.2-1.3); Blood Urea Nitrogen 10 mg/dL (7-17); Calcium 9.5 mg/dL (8.4-10.2); Carbon Dioxide 27 mmol/L (22-30); Chloride 103 mmol/L (98-107); Estimated Glomerular Filt Rate > 60; Glucose 101 mg/dL (65-110); Potassium 4.4 mmol/L (3.4-5.0); Sodium 137 mmol/L (137-145); Total Protein 7.2 g/dL (6.3-8.2)
== END 2024-11-23 10:43 | disposition home or self-care (01) ==
LOC: ANHLAB 10:42
PROVIDERS: PCP Family Medicine; Visit Provider Internal Medicine Hematology & Oncology
DX: C50.412 Malignant neoplasm of upper-outer quadrant of left female breast (principal); Z17.1 Estrogen receptor negative status [ER-]
CPT/HCPCS: 36415; 80047; 80053; 85025; 86300

== ENCOUNTER 2024-11-30 10:59 | Emergency (ER) | payer MEDICARE, SELFPAY ==
[2024-11-30] VITALS (11 sets, daily range): BP systolic 105–132; BP diastolic 63–91; PULSE 80–88; RESP 16; TEMP 36.6; O2SAT 95–99
--- NOTE | ~2024-11-30 | CT_ITS ---
CT of the Abdomen and Pelvis: Indication: Abdominal pain Technique: 2.5 mm axial scans were obtained through the abdomen and pelvis following intravenous adm inistration of 100 cc of Omnipaque 350. Dose reduction technique was used on this scan by utilizing a utomated exposure control and iterative reconstruction technique. The dose-length product (DLP) was 5 79.44 mGy-cm. Findings: Scans through the lung bases are unremarkable. Diffuse hepatic cysts are present. The spleen, pancreas, adrenals and kidneys are within normal limit s. Cholecystectomy clips are present. There are atherosclerotic calcifications of the aorta. No lymp hadenopathy. Probable diffuse large bowel wall thickening. No bowel obstruction. Gastric diverticulum noted. Images through the pelvis were performed. Urinary bladder unremarkable. No pelvic mass seen. No ascit es. Impression: Diffuse infectious/inflammatory large bowel colitis. Reviewed, dictated and finalized at [facility]. Impression: Diffuse infectious/inflammatory large bowel colitis.
--- OUTSIDE RECORDS SUMMARY | 2024-11-30 11:20 | XMS_ITS | Clinical Summary ---
Author Organization [facility] Efrem Stanley Address [address] [place] [address] Care Team Providers Care Step Down Specialist Name Role Phone Laura Doshi MD Primary Care Provider +1- [phone] Allergies No known active allergies Medications ALPRAZolam [...] Department Care Team Description 11/22/2024 Orders Only [facility] Oncology and Hematology - [place] [address] Paulo Carrasco MD Malignant neoplasm of upper-outer quadrant of left breast in female, estrogen receptor negative (CMS/HCC) 11/09/2024 External Device Data STL ABSTRACTION Provider, Abstract 11/09/2024 Orders Only [facility] Oncology and Hematology - [place] [address] [place] [id number] Paulo Carrasco MD 11/08/2024 Orders Only [facility] Oncology and Hematology - [place] [address] [place] [id number] Paulo Carrasco MD Malignant neoplasm of upper-outer quadrant of left breast in female, estrogen receptor negative (CMS/HCC) 10/25/2024 Orders Only [facility] Oncology and Hematology - [place] [address] [place] [address] Paulo Carrasco MD Malignant neoplasm of upper-outer quadrant of left breast in female, estrogen receptor negative (CMS/HCC) 10/12/2024 External Device Data STL ABSTRACTION Provider, Abstract 10/11/2024 Orders Only [facility] Oncology and Hematology - [place] [address] [place] [address] Paulo Carrasco MD Malignant neoplasm of upper-outer quadrant of left breast in female, estrogen receptor negative (CMS/HCC) 10/05/2024 External Device Data STL ABSTRACTION Provider, Abstract 09/27/2024 Orders Only [facility] Oncology and Hematology - [place] [address] [place] [address] Paulo Carrasco MD Malignant neoplasm of upper-outer quadrant of left breast in female, estrogen receptor negative (CMS/HCC) 09/13/2024 Orders Only [facility] Oncology and Hematology [facility] [address] [place] [address] Paulo Carrasco MD Malignant neoplasm [...] Description 12/07/2024 2:15 PM CDT Office Visit [facility] Oncology and Hematology [place] [address] [place] [address] Paulo Carrasco MD [address] [facility] [address] [place] [address] Health Maintenance Due Date Last [...] 10 ZOSTER VACCINE (1 of 2) 11/14/2009 OSTEOPOROSIS SCREENING 11/14/2024 INFLUENZA VACCINE (#1) 2024 [...] resultswithin the time period is included. Blood Paulo Carrasco MD HEMATOLOGY ORDERABLES Final Res ult from Last 3 Months Insurance [facility] [id number] Care Teams Step Down Specialist Relationship Specialty Start Date End Date Laura Doshi MD [address] [facility] [address] [facility] 120 [place] [address] PCP - General Family Practice 02/13/24
[2024-11-30 11:52] LABS: Hematocrit 36.1 % (37.0-47.0); Hemoglobin 11.9 g/dL (12.0-15.0); Immature Granulocyte Percent A 0.3 % (0-0.5); Lymphocytes Absolute Auto 1.23 K/mm3 (0.9-3.2); Mean Corpuscular HGB Conc 33.0 g/dl (32-36); Mean Corpuscular Hemoglobin 33.1 pg (26-34); Mean Corpuscular Volume 100.3 fl (80-100); Nucleated Red Blood Cells Absolute Auto 0.000 K/mm3 (0.0-0.012); Nucleated Red Blood Cells Perc 0.0 % (0.0-0.2); Platelet Count Result 220 k/mm3 (150-375); Red Blood Count 3.60 M/mm3 (4.2-5.4); White Blood Count 6.1 K/mm3 (4.5-10.0)
--- OUTSIDE RECORDS SUMMARY | 2024-11-30 11:52 | XMS_ITS | Clinical Summary ---
Author Organization [facility] Efrem Stanley Address [address] [place] [address] Care Team Providers Care Container Filler Name Role Phone Laura Doshi MD Primary Care Provider +1- [phone] Allergies No known active allergies Medications ALPRAZolam [...] Department Care Team Description 11/22/2024 Orders Only [facility] Oncology and Hematology - [place] [address] Paulo Carrasco MD Malignant neoplasm of upper-outer quadrant of left breast in female, estrogen receptor negative (CMS/HCC) 11/09/2024 External Device Data STL ABSTRACTION Provider, Abstract 11/09/2024 Orders Only [facility] Oncology and Hematology - [place] [address] [place] [id number] Paulo Carrasco MD 11/08/2024 Orders Only [facility] Oncology and Hematology - [place] [address] [place] [id number] Paulo Carrasco MD Malignant neoplasm of upper-outer quadrant of left breast in female, estrogen receptor negative (CMS/HCC) 10/25/2024 Orders Only [facility] Oncology and Hematology - [place] [address] [place] [address] Paulo Carrasco MD Malignant neoplasm of upper-outer quadrant of left breast in female, estrogen receptor negative (CMS/HCC) 10/12/2024 External Device Data STL ABSTRACTION Provider, Abstract 10/11/2024 Orders Only [facility] Oncology and Hematology - [place] [address] [place] [address] Paulo Carrasco MD Malignant neoplasm of upper-outer quadrant of left breast in female, estrogen receptor negative (CMS/HCC) 10/05/2024 External Device Data STL ABSTRACTION Provider, Abstract 09/27/2024 Orders Only [facility] Oncology and Hematology - [place] [address] [place] [address] Paulo Carrasco MD Malignant neoplasm of upper-outer quadrant of left breast in female, estrogen receptor negative (CMS/HCC) 09/13/2024 Orders Only [facility] Oncology and Hematology [facility] [address] [place] [address] Paulo Carrasco MD Malignant neoplasm [...] Description 12/07/2024 2:15 PM CDT Office Visit [facility] Oncology and Hematology [place] [address] [place] [address] Paulo Carrasco MD [address] [facility] [address] [place] [address] Health Maintenance Due Date Last [...] Res ult from Last 3 Months Insurance [facility] [id number] Care Teams Container Filler Relationship Specialty Start Date End Date Laura Doshi MD [address] [facility] [address] [facility] [address] [place] [address] PCP - General Family Practice 02/13/24
[2024-11-30 11:53] LABS: Add Urine Microscopic? NO; Appearance Urine Clear (Clear); Glucose Urine UA Negative (Negative); Leukocyte Esterase Ur Negative LEU/UL (Negative); Nitrate Urine Negative (Negative); Specific Grav Ur 1.009 (1.001-1.035)
[2024-11-30 12:16] LABS: Alanine Aminotransferase 54 U/L (6-35); Albumin Level 4.4 g/dL (3.5-5.1); Alkaline Phosphatase 54 U/L (38-126); Anion Gap 9 mmol/L (4-12); Aspartate Amino Transferase 57 U/L (14-36); Bilirubin,Total 0.5 mg/dL (0.2-1.3); Blood Urea Nitrogen 11 mg/dL (7-17); Calcium 9.3 mg/dL (8.4-10.2); Carbon Dioxide 27 mmol/L (22-30); Chloride 103 mmol/L (98-107); Estimated CRCL calculation 98 ml/min; Estimated Glomerular Filt Rate > 60; Glucose 106 mg/dL (65-110); Lipase 58 U/L (23-300); Potassium 3.7 mmol/L (3.4-5.0); Sodium 139 mmol/L (137-145); Total Protein 7.6 g/dL (6.3-8.2)
[2024-11-30] MEDS: ONDANSETRON INJ 4 MG/2 ML VIAL IV PUSH (12:16)
[2024-11-30] MEDS: PANTOPRAZOLE SODIUM IV 40 MG VIAL IV PUSH (12:16)
--- NOTE | 2024-11-30 13:53 | ED_ITS ---
HPI - Nausea/Vomiting/Diarrhea General Chief complaint: Nausea/Vomiting/Diarrhea Stated complaint: diarrhea Time Seen by Provider: 11/30/24 11:35 History of Present Illness HPI Narrative: Patient has had diarrhea for the last 10 days, with lower abdominal pain, has noticed the stools have turned dark. No recent antibiotics or travel. Has also had some nausea. No fevers or chills Related Data Home Medications ?Medication ?Instructions ?Recorded ?Confirmed ?Last Taken ?Type B-complex with vitamin C 1 tablet PO DAILY 07/13/20 10/25/24 10/21/24 History calcium carbonate (Calcium 600) 600 mg PO DAILY 07/13/20 10/25/24 10/21/24 History magnesium oxide 500 mg PO DAILY 07/13/20 10/25/24 10/21/24 History multivitamin 1 tablet PO DAILY 07/13/20 10/25/24 10/21/24 History ascorbic acid (vitamin C) 500 mg 500 mg PO DAILY 03/31/24 10/25/24 10/21/24 History capsule,extended release zinc 50 mg tablet 50 mg PO DAILY 03/31/24 10/25/24 10/21/24 History biotin 10,000 mcg capsule 10,000 mcg PO DAILY 10/18/24 10/25/24 10/21/24 History Allergies Allergy/AdvReac Type Severity Reaction Status Date / Time No Known Allergies Allergy Verified 11/30/24 11:11 Review of Systems 2 Review of Systems: All systems reviewed & are unremarkable except as noted in HPI and below PMFSH Past Medical History Medical History History of breast cancer Ankle fracture, left trimaleolar 2019 Melanosis coli Cholecystitis Hyperlipidemia LAURA (generalized anxiety disorder) Thyroid nodule Hypertension Surgical History Surgical History H/O colonoscopy with polypectomy 2018, repeat in 2023 Hx of cholecystectomy History of appendectomy Family History Family History Father Diabetes mellitus Family history of cardiovascular disease Mother Diabetes mellitus Hypertension Social History Social History (Updated 10/22/24 @ 10:08 by Doreen Mclaughlin) Social History: Smoking packs per day: 0.25 Smoking cigarettes per day: 5.0 Years smoked: 20 Smoking pack-years: 5.00 Smoking status: Former smoker Tobacco type: cigarettes Second hand tobacco smoke exposure: No Smoking end date: 02/08/14 Additional smoking assessment comments: QUIT 2017 Alcohol intake: current Drinks per week: 3 Alcohol use details: 2 PER MONTH Substance use: never Substance use type: does not use Do You Feel Safe in your Home?: Yes Lack of Transportation: No Lack of Food: Never True Current Housing: I Have Housing Concerned About Future Housing: No Difficulty Paying Gas/Electric Bills: No Difficulty Paying for Meds: No Currently Unemployed: YES Education: Don't Know Difficulty w/ Childcare or Family Care: No Living arrangements: with family Additional living arrangements comments: Pt lives with her mother. Occupation/Education: retired Gender identity (if verbalized by the patient): Female Sexual Orientation (if Verbalized by the Patient): Straight or Heterosexual Spiritual care concerns: No Exam 2 Narrative: EXAMINATION OF ORGAN SYSTEMS/BODY AREAS: Constitutional: Vital signs per nursing GENERAL:[No acute distress, non-toxic appearing.] HEAD: Normal with no signs of head trauma. EYES: EOMI, conjunctiva normal ENT: Hearing grossly intact LUNGS: Nonlabored breathing. HEART: [Regular rate and rhythm] ABD: [Soft], slightly uncomfortable to deep palpation lower abdomen RECTAL: guaiac neg; brown stool EXT: Normal range of motion SKIN: [No rashes or lesions.] NEURO: [Alert and oriented x 3. No gross focal sensory or strength deficits.] PSYCH: Normal affect Course Vital Signs Vital signs: Vital Signs Temperature 97.8 F 11/30/24 11:10 Pulse Rate 88 11/30/24 11:10 Respiratory Rate 16 11/30/24 11:10 Blood Pressure 126/72 11/30/24 11:10 Pulse Oximetry 99 11/30/24 11:10 Oxygen Delivery Room Air 11/30/24 11:10 Temperature 97.8 F 11/30/24 11:10 Pulse Rate 82 11/30/24 11:48 Respiratory Rate 16 11/30/24 11:48 Blood Pressure 117/91 H 11/30/24 11:48 Pulse Oximetry 96 11/30/24 11:48 Oxygen Delivery Room Air 11/30/24 11:10 MDM - Nausea/Vomiting/Diarrhea MDM Narrative Medical decision making narrative: Electronic medical record was reviewed. Patient presented to the ED with complaint of [abdominal pain and diarrhea]. Vitals [were within acceptable limits]. Physical exam revealed [tenderness to deep palpation lower abdomen]. Based on the patient's history and physical exam, my differential includes but is not limited to [colitis, diverticulitis, gastroenteritis, appendicitis]. [IV access was established by nursing staff. Patient was given zofran, Protonix]. She declined pain medication at this time. CBC, BMP, lipase, LFTs, bilirubin and alk phos were obtained. Labs were pertinent for minimally elevated LFTs otherwise unremarkable. [Decision was made to obtain a CT-abdomen to evaluate for acute abdominal process. CT-abdomen per radiology interpretation is significant for colitis.] On reevaluation, the patient is feeling fine. There were no witnessed episodes of vomiting in the emergency department. They are not complaining of any new abdominal pain. Repeat examination did not show any significant guarding or rebound. No new tenderness. In shared decision making with patient, given how long the symptoms have been ongoing for and how she is feeling, will opt to start antibiotic treatment at this time with close follow-up to PCP and GI. The patient was given strict return precautions, if they are to develop any worsening abdominal pain, vomiting, or blood in the vomit or blood in her stool, they are to return to the emergency department immediately. Patient verbally acknowledges understanding these directions. [The patient was informed of the above diagnostic test findings.] No further workup is necessary at this time. They will be discharged home [with prescriptions]. They were advised to follow-up with [their PCP] and gastroenterology in 2 days. The patient feels that this is appropriate medical decision making and verbalizes an understanding of the discharge instructions. Lab Data 11/30/24 11:44 11/30/24 11:44 Labs: Lab Results 11/30/24 11/30/24 Range/Units 11:41 11:44 WBC 6.1 (4.5-10.0) K/mm3 RBC 3.60 L (4.2-5.4) M/mm3 Hgb 11.9 L (12.0-15.0) g/dL Hct 36.1 L (37.0-47.0) % MCV 100.3 H (80-100) fl MCH 33.1 (26-34) pg MCHC 33.0 (32-36) g/dl RDW 13.6 (11.5-14.5) % Plt Count 220 (150-375) k/mm3 MPV 9.1 (7.4-10.4) fl Immature Gran % (Auto) 0.3 (0-0.5) % Neut % (Auto) 70.1 (45.5-73.1) % Lymph % (Auto) 20.2 (18.3-44.2) % Berrien % (Auto) 8.0 (2.6-8.5) % Eos % (Auto) 1.1 (0-4.4) % Baso % (Auto) 0.3 (0.2-1.2) % Lymph # (Auto) 1.23 (0.9-3.2) K/mm3 [place]rien # (Auto) 0.5 (0.1-0.6) K/mm3 Eos # (Auto) 0.1 (0-0.3) K/mm3 Baso # (Auto) 0.0 (0.0-0.1) K/mm3 Abs Immat Gran (auto) 0.02 (0.00-0.031) K/mm3 Absolute Neuts (auto) 4.3 (1.3-6.7) K/mm3 Absolute Nucleated RBC 0.000 (0.0-0.012) K/mm3 Nucleated RBC % 0.0 (0.0-0.2) % Sodium 139 (137-145) mmol/L Potassium 3.7 (3.4-5.0) mmol/L Chloride 103 (98-107) mmol/L Carbon Dioxide 27 (22-30) mmol/L Anion Gap 9 (4-12) mmol/L BUN 11 (7-17) mg/dL Creatinine 0.53 L (0.7-1.0) mg/dL Estim Creat Clear Calc 98 ml/min Estimated GFR > 60 (59 - ) Glucose 106 (65-110) mg/dL Lactic Acid 0.9 (0.7-2.0) mmol/L Calcium 9.3 (8.4-10.2) mg/dL Total Bilirubin 0.5 (0.2-1.3) mg/dL AST 57 H (14-36) U/L ALT 54 H (6-35) U/L Alkaline Phosphatase 54 (38-126) U/L Total Protein 7.6 (6.3-8.2) g/dL Albumin 4.4 (3.5-5.1) g/dL Lipase 58 (23-300) U/L Urine Color Yellow (Yellow) Urine Appearance Clear (Clear) Urine pH 7.0 (5.0-9.0) Ur Specific Holiday 1.009 (1.001-1.035) Urine Protein Negative (Negative) mg/dL Urine Glucose (UA) Negative (Negative) mg/dL Urine Ketones Negative (Negative) mg/dL Ur Blood (Man) Negative (Negative) Urine Nitrate Negative (Negative) Urine Bilirubin Negative (Negative) Urine Urobilinogen 0.2 (<2.0) mg/dL Leukocyte Esterase Rfl Negative (Negative) KRISHNA/UL Discharge Plan Discharge Clinical Impression: Colitis Patient Disposition: Home Condition: Stable Instructions: Antibiotic Form, Colitis (ED) Additional Instructions: 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 Patient Language: Citizen Of [place] Prescriptions: New ciprofloxacin HCl [Cipro] 500 mg tablet 500 mg PO Q12H 3 Days Qty: 6 0RF No Action ascorbic acid (vitamin C) 500 mg Capsule, Extended Release 500 mg PO DAILY Patient Comments: . zinc 50 mg Tablet 50 mg PO DAILY multivitamin Tablet 1 tablet PO DAILY Patient Comments: . B-complex with vitamin C Tablet 1 tablet PO DAILY Patient Comments: . calcium carbonate [Calcium 600] 600 mg calcium (1,500 mg) tablet 600 mg PO DAILY Patient Comments: . magnesium oxide 500 mg tablet 500 mg PO DAILY Patient Comments: . lisinopril-hydrochlorothiazide 20-12.5 mg tablet See Rx Instructions .ROUTE .COMPLEX Qty: 90 1RF Dose Instruction: TAKE 1 TABLET BY MOUTH EVERY DAY Patient Comments: . Rx Instructions: TAKE 1 TABLET BY MOUTH EVERY DAY rosuvastatin 10 mg tablet 10 mg PO HS Qty: 90 2RF escitalopram oxalate 10 mg tablet See Rx Instructions .ROUTE .COMPLEX Qty: 90 1RF Dose Instruction: TAKE 1 TABLET (10 MG) ORALLY DAILY Rx Instructions: TAKE 1 TABLET (10 MG) ORALLY DAILY alprazolam 0.25 mg tablet 0.25 mg PO BID PRN (Reason: anxiety) Qty: 60 0RF Patient Comments: . biotin 10,000 mcg capsule 10,000 mcg PO DAILY gabapentin 100 mg capsule 200 mg PO TID Qty: 180 2RF Follow-up/Referrals: Brown Miller MD [Primary Care Provider] - 2 Days Ray Perdomo MD [Physician] - 2 Days
[2024-11-30] MEDS: LACTATED RINGERS 1,000 ML 999 ML IV CONT (14:06)
[2024-11-30] MEDS: LOPERAMIDE HCL 2 MG CAPSULE 4 MG PO (14:06)
[2024-11-30] MEDS: CIPROFLOXACIN 500 MG TAB PO (14:06)
== END 2024-11-30 14:53 | disposition home or self-care (01) ==
PROVIDERS: Emergency Provider Emergency Medicine; PCP Family Medicine
DX: K52.9 Noninfective gastroenteritis and colitis, unspecified (principal); I10 Essential (primary) hypertension; E78.5 Hyperlipidemia, unspecified; F41.1 Generalized anxiety disorder; Z85.3 Personal history of malignant neoplasm of breast; Z87.891 Personal history of nicotine dependence; Z90.49 Acquired absence of other specified parts of digestive tract; Z79.899 Other long term (current) drug therapy
CPT/HCPCS: 36415; 74177; 80053; 81003; 83605; 83690; 85025; 96361; 96374; 96375; 99284; A9270; J2405; J2470; J7120; Q9967